=== PATIENT | female | born 1965 | race Caucasian/White ===

== ENCOUNTER → 2017-07-11 | Outpatient (CLI) | payer OTHER ==
--- NOTE | 2017-07-12 07:03 | USB ---
Reason for exam: clinical finding. History: Family history of breast cancer in mother at age 29 and breast cancer in sister. Indicated problem(s): palpable abnormality in the left breast. Physical Findings: Nurse Summary: soft, movable, palpable lump palpated (nurse rm). US Breast Workup LT Left breast ultrasound includes all four quadrants, the retroareolar region and axilla. Finding demonstrates a 0.5 x 0.4 x 0.4cm benign lymph node at 4 o'clock. These results were verbally communicated with the patient and result sheet given to the patient on 07/11/17. ASSESSMENT: Benign, BI-RAD 2 RECOMMENDATION: Return to routine screening mammogram schedule for both breasts. Manage patient on a clinical basis.
== END | disposition home or self-care (01) ==
LOC: RADUSWWP 14:51
PROVIDERS: ATTEND Family Medicine
DX: R92.8 Other abnormal and inconclusive findings on diagnostic imaging of breast (principal)

== ENCOUNTER → 2017-08-28 | Outpatient (CLI) | payer OTHER ==
[2017-08-28 14:10] LABS: Basophils # (A) 0.1 k/uL (0-0.2); Basophils % (A) 1 %; Eosinophils # (A) 0.1 k/uL (0-0.7); Eosinophils % (A) 2 %; HCT 45.5 % (34.0-46.0); HGB 14.1 gm/dL (11.4-16.0); Hypochromasia Slight; Lymphocytes # (A) 3.1 k/uL (1.0-4.8); Lymphocytes % (A) 42 %; MCH 28.9 pg (25.0-35.0); MCHC 31.1 g/dL (31.0-37.0); Mean Platelet Volume 6.4; Monocytes # (A) 0.3 k/uL (0-1.0); Monocytes % (A) 4 %; Neutrophils # (A) 3.5 k/uL (1.3-7.7); Neutrophils % (A) 48 %; Platelet Count 393 k/uL (150-450); RDW 12.4 % (11.5-15.5); WBC 7.3 k/uL (3.8-10.6)
[2017-08-28 14:18] LABS: MCV 92.9 fL (80.0-100.0)
== END | disposition home or self-care (01) ==
LOC: LABPAT 13:15
PROVIDERS: ATTEND Surgery
DX: Z01.812 Encounter for preprocedural laboratory examination (principal); K21.0 Gastro-esophageal reflux disease with esophagitis
CPT/HCPCS: 36415; 85025

== ENCOUNTER 2017-08-31 09:18 | Observation (INO) | payer OTHER ==
[2017-08-23 16:18] VITALS: BMI 26.3
[~2017-08-31 09:18] MED LIST: DEXAMETHASONE SOD PHOSPHATE 10 MG/ML 1 ML VIAL IV ONE; HEPARIN SODIUM,PORCINE 5,000 UNIT/ML 1 ML VIAL SQ ONE; HYDROmorphone 0.5 MG/0.5 ML SYRINGE IVP PRN; MIDAZOLAM 2 MG/2 ML VIAL IV PRN; ONDANSETRON 4 MG/2 ML VIAL IVP ONE; ceFAZolin IN SWFI 2 GM/20 ML SYRINGE IVP ONE
[2017-08-31] MEDS: LACTATED RINGERS 1,000 ML IV SCH (10:09)
[2017-08-31] MEDS ORDERED: LIDOCAINE 1% 20 ML VIAL (10MG/ML) FOR IV START INTRADERMA ONE (10:10)
--- NOTE | 2017-08-31 12:04 | P.GSHP ---
History of Present Illness H&P Date: 08/31/17 Chief Complaint: GERD This a 52-year-old female referred from Dr. Horta. Patient presents today for laparoscopic James fundoplication. The patient has had long-standing problems with reflux esophagitis. The patient underwent recent EGD is found have evidence of esophagitis. Patient has been well informed on the procedure of laparoscopic James fundoplication. The patient is aware the risk of the conversion to the open procedure, risk of injury to the stomach, liver and spleen. The patient is also a risk of recurrent GERD and dysphagia symptoms. The patient understands there is a postoperative diet of full liquids for 2 weeks after surgery. Past Medical History Past Medical History: Fibromyalgia, GERD/Reflux, Osteoarthritis (OA) Additional Past Medical History / Comment(s): hx Kidney stones, migraines, heartburn at night, ruptured discs History of Any Multi-Drug Resistant Organisms: None Reported Past Surgical History: Breast Surgery, Cholecystectomy, Orthopedic Surgery Additional Past Surgical History / Comment(s): D&C x2, Rt foot surgery, benign tumor L breast, tendon repair left ring finger, recent EGD,colonoscopy Past Anesthesia/Blood Transfusion Reactions: Motion Sickness Smoking Status: Former smoker - Past Family History Mother Family Medical History: Cancer Additional Family Medical History / Comment(s): Breast Father Family Medical History: Deep Vein Thrombosis (DVT) Medications and Allergies Home Medications Medication Instructions Recorded Confirmed Type ALPRAZolam [Xanax] 0.25 mg PO BID PRN 08/08/17 08/31/17 History Amitriptyline HCl [Elavil] 50 mg PO HS 08/08/17 08/31/17 History Cyclobenzaprine [Flexeril] 10 mg PO HS PRN 08/08/17 08/31/17 History Famotidine [Pepcid] 20 mg PO BID 08/08/17 08/31/17 History Hydrocodone/Acetaminophen [[place] 1 tab PO TID PRN 08/08/17 08/31/17 History 10-325] Pregabalin [Lyrica] 75 mg PO TID 08/08/17 08/31/17 History Promethazine [Phenergan] 25 mg PO DIRECTED PRN 08/08/17 08/31/17 History Rizatriptan Benzoate [Maxalt] 10 mg PO DIRECTED PRN 08/08/17 08/31/17 History Topiramate [Topamax] 50 mg PO QAM 08/08/17 08/31/17 History Topiramate [Topamax] 100 mg PO HS 08/08/17 08/31/17 History Verapamil [Isoptin] 80 mg PO TID 08/08/17 08/31/17 History Allergies Allergy/AdvReac Type Severity Reaction Status Date / Time latex Allergy Rash/Hives Verified 08/23/17 15:44 rizatriptan [From Maxalt] Allergy Itching Verified 08/23/17 15:44 bandaid Allergy Swelling Uncoded 08/23/17 15:44 Surgical - Exam Vital Signs Temp Pulse Resp BP Pulse Ox 97.6 F 88 16 134/92 99 08/31/17 09:55 08/31/17 09:55 08/31/17 09:55 08/31/17 09:55 08/31/17 09:55 - General well developed, no distress - Eyes PERRL - ENT normal pinna - Neck no masses - Respiratory normal expansion - Cardiovascular Rhythm: regular - Abdomen Abdomen: soft, non tender Assessment and Plan Assessment: ... We'll perform laparoscopic James fundal plication.
[2017-08-31] MEDS ORDERED: MIDAZOLAM 2 MG/2 ML VIAL ONE (12:45)
[2017-08-31] MEDS ORDERED: GLYCOPYRROLATE 0.2 MG/ML 2 ML VIAL ONE (12:45)
[2017-08-31] MEDS ORDERED: NEOSTIGMINE 1 MG/ML 10 ML VIAL ONE (12:45)
[2017-08-31] MEDS ORDERED: fentaNYL (PF) 50 MCG/ML 2 ML AMP ONE (12:45)
[2017-08-31] MEDS ORDERED: SUCCINYLCHOLINE CHLORIDE 100 MG/5 ML SYR IV ONE (12:45)
[2017-08-31] MEDS ORDERED: ROCURONIUM BROMIDE 10 MG/ML 10 ML VIAL IV ONE (12:45)
[2017-08-31] MEDS ORDERED: PROPOFOL 10 MG/ML 20 ML VIAL IV ONE (12:45)
[2017-08-31] MEDS ORDERED: BUPIVACAINE-EPI 0.5%-1:200,000 10 ML VIAL SQ ONE (13:00)
[2017-08-31] MEDS ORDERED: BUPIVACAINE (PF) 0.25% 30 ML VIAL SQ ONE (13:16)
[2017-08-31] MEDS ORDERED: LACTATED RINGERS 1,000 ML IV ONE (13:28)
[2017-08-31] MEDS ORDERED: ONDANSETRON 4 MG/2 ML VIAL IVP PRN (14:23)
--- NOTE | 2017-08-31 14:41 | P.OP ---
Date of Procedure: 08/31/17 Preoperative Diagnosis: GERD Postoperative Diagnosis: GERD Large hiatal hernia Procedure(s) Performed: Laparoscopic James fundal plication with mesh repair of hiatal hernia Anesthesia: LORENZO Surgeon: Kit Menon Estimated Blood Loss (ml): 10 Pathology: none sent Condition: stable Disposition: PACU Description of Procedure: The patient was placed on the operating table in the supine position. She received general anesthesia. She was then placed in dorsal lithotomy position. Her abdomen was prepped and draped in the usual sterile fashion. The skin incision sites were anesthetized with 1% local Xylocaine. The skin was incised in the left periumbilical area with an 11 scalpel. Using a 5 mm blade was trocar under direct visitation the peritoneal cavity was entered. And then insufflated. After adequate insufflation the laparoscope was placed back into the peritoneal cavity. Next a 5 mm trocar was placed in the right epigastric and then the right lateral position. Another 5 mm trochars placed in the left lateral position. Another 5 mm trocar placed in the left epigastric position. And the original left periumbilical trocar was exchanged for a 10 mm trocar. The left lateral lobe liver was retracted. The patient had a large hiatal hernia. Using the Harmonic scissors the crural defect was dissected in the Harmonic scissors were used to dissect the hiatal hernia sac. The fundus of the stomach was completely mobilized by using the Harmonic scissors to divide short gastric vessels. The stomach was reduced into the peritoneal cavity. The crura was dissected with the Harmonic scissors. And then the crural repair was performed using 2-0 Ethibond suture. The [place] bio A mesh was then placed over top of the repair and secured with 2-0 Ethibond suture. Next a 58-Pashto bougie dilator was placed the patient's oral pharynx and into the esophagus into the stomach by the [employer]. The fundoplication was then performed using 2-0 Ethibond suture. A 360 fundoplication was performed. At this point the dilator was withdrawn. The stomach and esophagus were inspected there is known to any injury to the stomach or esophagus. The abdomen was irrigated there is no bleeding seen. The trochars are withdrawn. Skin was closed interrupted 3-0 Monocryl suture. Dermabond was applied. Patient tolerated procedure well and was sent to recovery in stable condition.
[2017-08-31] MEDS ORDERED: HYDROmorphone 1 MG/ML 1 ML SYRINGE IVP ONE ×2 (14:52→14:58)
[2017-08-31 14:56] LABS: Basophils % (A) 0 %; Eosinophils % (A) 0 %; HCT 43.8 % (34.0-46.0); HGB 13.5 gm/dL (11.4-16.0); Hypochromasia Moderate; Lymphocytes # (A) 1.5 k/uL (1.0-4.8); Lymphocytes % (A) 15 %; MCH 28.7 pg (25.0-35.0); MCHC 30.8 g/dL (31.0-37.0); Mean Platelet Volume 6.9; Monocytes # (A) 0.2 k/uL (0-1.0); Monocytes % (A) 2 %; Neutrophils # (A) 8.4 k/uL (1.3-7.7); Neutrophils % (A) 82 %; Platelet Count 267 k/uL (150-450); RBC 4.71 m/uL (3.80-5.40); RDW 13.3 % (11.5-15.5); WBC 10.3 k/uL (3.8-10.6)
[2017-08-31] MEDS ORDERED: HYDROmorphone 2 MG/ML 1 ML SYRINGE IM PRN (15:56)
[2017-08-31] MEDS: ceFAZolin IN SWFI 2 GM/20 ML SYRINGE IVP SCH (17:13)
[2017-08-31] MEDS: D5-0.45% NACL WITH KCL 20MEQ/L 1,000 ML IV SCH (17:13)
[2017-08-31] MEDS: HYDROmorphone 2 MG/ML 1 ML SYRINGE IVP PRN ×2 (17:13→21:43)
[2017-08-31] MEDS: METOCLOPRAMIDE 5 MG/ML 2 ML VIAL IVP SCH (17:13)
[2017-08-31] MEDS ORDERED: SUMAtriptan SUCCINATE 50 MG TAB PO PRN (19:21)
[2017-08-31] MEDS ORDERED: ALPRAZolam 0.25 MG TAB PO PRN (19:21)
[2017-08-31] MEDS ORDERED: CYCLOBENZAPRINE 10 MG TAB PO PRN (19:21)
[2017-08-31] MEDS ORDERED: PROMETHAZINE 25 MG TAB PO PRN (19:21)
[2017-08-31] MEDS: VERAPAMIL 80 MG TAB PO SCH (20:37)
[2017-08-31] MEDS ORDERED: FAMOTIDINE 20 MG/2 ML VIAL IV SCH (21:00)
[2017-08-31] MEDS ORDERED: FAMOTIDINE 20 MG TAB PO SCH (21:00)
[2017-08-31] MEDS: TOPIRAMATE 100 MG TAB PO SCH (21:40)
[2017-08-31] MEDS: AMITRIPTYLINE HCL 25 MG TAB PO SCH (21:41)
[2017-09-01] MEDS: METOCLOPRAMIDE 5 MG/ML 2 ML VIAL IVP SCH ×4 (00:05→18:02)
[2017-09-01] MEDS: ceFAZolin IN SWFI 2 GM/20 ML SYRINGE IVP SCH (00:05)
[2017-09-01] MEDS: D5-0.45% NACL WITH KCL 20MEQ/L 1,000 ML IV SCH ×3 (03:33→21:00)
[2017-09-01] MEDS: HYDROmorphone 2 MG/ML 1 ML SYRINGE IVP PRN ×4 (03:34→21:59)
[2017-09-01] MEDS: PREGABALIN 75 MG CAP PO SCH ×4 (07:12→20:58)
[2017-09-01] MEDS: PANTOPRAZOLE 40 MG/10 ML VIAL IVP SCH ×3 (07:12→20:59)
--- NOTE | 2017-09-01 08:44 | CONS ---
CONSULTATION I am covering for Dr. Horta. REASON FOR CONSULTATION: Advice regarding DJD and multiple other medical issues requested by surgery, Dr. Menon. HISTORY OF PRESENT ILLNESS: This 52-year-old woman with past history of fibromyalgia, DJD, history of migraines, history of heartburn, history of orthopedic surgery, history of anxiety being followed by Dr. Horta in the outpatient setting underwent laparoscopic James fundoplication with mesh repair of hiatal hernia by Dr. Menon. The patient is complaining of some migraine episode at this time, which has been controlled by the different medications adjusted by Dr. Hobson in the outpatient setting. There is no history of fever, rigors. No history of headache. No chest pain, palpitations at this time. PAST MEDICAL HISTORY: History of fibromyalgia, GERD, DJD, history of kidney stones, history of migraine, heartburn. MEDICATIONS: Prior to admission include home medications are: 1. Topamax 100 mg q.h.s. 2. Maxalt 10 mg p.r.n. 3. Phenergan 25 mg p.r.n. 4. Lyrica 75 mg t.i.d. 5. [place] 10 mg t.i.d. p.r.n. 6. Pepcid 20 mg b.i.d. 7. Flexeril 10 mg q.h.s. 8. Elavil 50 mg q.h.s. 9. Xanax 0.5 b.i.d. p.r.n. 10.Isoptin 80 mg p.o. t.i.d. 11.Topamax 50 mg q.a.m. ALLERGIES: LATEX, MAXALT, BAND-AID. FAMILY HISTORY: History of breast cancer. SOCIAL HISTORY: No history of current smoking or alcohol intake. Previous history of smoking. REVIEW OF SYSTEMS: ENT: As mentioned earlier. CARDIOVASCULAR: No angina. RESPIRATORY: No cough or hemoptysis. GI: As mentioned. : No dysuria. NERVOUS SYSTEM: As mentioned. ALLERGY/IMMUNOLOGY: No asthma. MUSCULOSKELETAL: As mentioned earlier. HEMATOLOGY/ONCOLOGY: No history of anemia. ENDOCRINE: No history of diabetes or hypothyroidism. CONSTITUTIONAL: As mentioned earlier. DERMATOLOGY: Negative. RHEUMATOLOGY: Negative. PSYCHIATRY: As mentioned earlier. PHYSICAL EXAMINATION: Alert, oriented x3. Pulse 103, blood pressure 140/80, respirations 16, temperature is normal, pulse ox 90% on room air. HEENT: Conjunctivae normal. Oral mucosa moist. NECK: No jugular venous distention. No carotid bruit. No lymph node enlargement. CARDIOVASCULAR: S1, S2. No S3, no S4. RESPIRATORY: Breath sounds diminished in the bases. No rhonchi, no crackles. ABDOMEN: Soft, status post surgery. LEGS: No edema. No swelling. NERVOUS SYSTEM: Higher functions as mentioned earlier. Moves all four limbs. No focal motor deficits. LYMPHATIC: No lymphadenopathy in the neck, axillae or groin. SKIN: No ulcer, rash, bleeding. LAB: CBC within normal limits. ASSESSMENT: 1. Status post laparoscopic James fundoplication with mesh repair for hiatal hernia. 2. History of migraine. 3. History of gastroesophageal reflux disease. 4. History of fibromyalgia. 5. History of degenerative joint disease. 6. History of kidney stones. 7. History of cholecystectomy. 8. History of anxiety. 9. Remote history of nicotine dependence. RECOMMENDATIONS AND DISCUSSION: This 52-year-old woman who presented with multiple complex medical issues, will monitor the patient closely. Continue the current management and symptomatic treatment. Home medications reviewed. I recommend resume home medications especially night doses and use p.r.n. medications. Dilaudid also may be used for pain control. Otherwise, DVT prophylaxis. Incentive spirometry. Proton pump inhibitors. We will follow the patient closely with you. The patient may be asked to follow up with Dr. Horta closely after discharge. Thank you Dr. Menon, for letting us participate in the care of this patient. MMODL / IJN: [id number] /
[2017-09-01] MEDS: LACTATED RINGERS 1,000 ML IV SCH (08:47)
[2017-09-01] MEDS: TOPIRAMATE 25 MG TAB PO SCH (08:54)
[2017-09-01] MEDS: ENOXAPARIN 40 MG/0.4 ML SYRINGE SQ SCH (08:54)
[2017-09-01] MEDS: VERAPAMIL 80 MG TAB PO SCH ×3 (08:54→20:58)
--- NOTE | 2017-09-01 09:43 | FL ---
EXAMINATION TYPE: FL esophagus cervic/pharynx , DATE OF EXAM ORDERED: 09/01/2017 HISTORY: Postop Juani fundoplication. COMPARISON: None. FINDINGS: The patient swallowed contrast with ease. There is prompt egress of contrast from the esop hagus into the stomach. There is no evidence of extravasation or significant free air. The ligament o f Treitz is in the normal location. IMPRESSION: STATUS POST JUANI FUNDOPLICATION. FLUOROSCOPY TIME: 60 SECONDS
--- NOTE | 2017-09-01 10:43 | P.PN ---
Progress Note - Text Progress Note Date: 09/01/17 The patient has complaints of some nausea. She had her esophagram which showed some mild obstruction at the operative site due to edema. On exam her vital signs are stable. Her abdomen soft. Her incision sites are clean dry tach. Patiently discharged home tomorrow. She will start on clear liquids today.
--- NOTE | 2017-09-01 20:26 | PN ---
PROGRESS NOTE DATE OF SERVICE: 09/01/2017 I am covering for Dr. Horta. This 52-year-old woman who was admitted after laparoscopic James fundoplication complains of nausea as well as pain. No chest pain. No palpitations. No fever. Dr. Menon is following the patient closely. EXAM: Alert and oriented x3. Pulse 87, blood pressure 143/90, respirations 20, temperature 97.9, pulse ox 98% on room air. HEENT: Conjunctivae normal. NECK: No jugular venous distention. CARDIOVASCULAR: S1, S2 muffled. RESPIRATORY: Breath sounds diminished in the bases. No rhonchi. No crackles. ABDOMEN: Soft, status post surgery. NERVOUS SYSTEM: No focal deficits LABS: Noted. ASSESSMENT: 1. Status post laparoscopic James fundoplication with a mesh repair of hiatal hernia. 2. History of migraines. 3. History of gastroesophageal reflux disease. 4. History of fibromyalgia. 5. History of degenerative joint disease. 6. History of kidney stones. 7. History of cholecystectomy. 8. History of anxiety. 9. Remote history of nicotine dependence. RECOMMENDATIONS AND DISCUSSION: Recommend to continue current medical management. Continue with monitoring and symptomatic treatment. Otherwise, at this time I would recommend continuing with the with proton pump inhibitors. Closely monitor. Further recommendations to follow. MMODL / IJN: [id number] /
[2017-09-01] MEDS: AMITRIPTYLINE HCL 25 MG TAB PO SCH (20:57)
[2017-09-01] MEDS: TOPIRAMATE 100 MG TAB PO SCH (20:58)
[2017-09-02] MEDS: METOCLOPRAMIDE 5 MG/ML 2 ML VIAL IVP SCH ×2 (00:02→05:02)
[2017-09-02] MEDS: HYDROmorphone 2 MG/ML 1 ML SYRINGE IVP PRN ×2 (05:02→10:43)
[2017-09-02 06:24] VITALS: RESP 18
[2017-09-02] MEDS: D5-0.45% NACL WITH KCL 20MEQ/L 1,000 ML IV SCH (08:05)
[2017-09-02] MEDS: LACTATED RINGERS 1,000 ML IV SCH (08:05)
[2017-09-02 08:30] VITALS: BP 114/72; PULSE 112; TEMP 99.6
[2017-09-02] MEDS: TOPIRAMATE 25 MG TAB PO SCH (08:57)
[2017-09-02] MEDS: ENOXAPARIN 40 MG/0.4 ML SYRINGE SQ SCH (08:57)
[2017-09-02] MEDS: PREGABALIN 75 MG CAP PO SCH (08:57)
[2017-09-02] MEDS: VERAPAMIL 80 MG TAB PO SCH (08:58)
[2017-09-02] MEDS: PANTOPRAZOLE 40 MG/10 ML VIAL IVP SCH (08:58)
--- NOTE | 2017-09-02 11:00 | P.DS ---
Providers Date of admission: 09/01/17 05:25 Expected date of discharge: 09/02/17 Attending physician: Kit Menon Consults: 08/31/17 14:23 Consult Physician Routine Consulting Provider: Jordon Horta Consult Reason/Comments: medical management Do you want consulting provider notified?: Yes Primary care physician: Jordon Horta [facility] Course: This is a 52-year-old female who underwent laparoscopic James fundal plication and mesh repair of hiatal hernia on 08/31/2017. Patient did well postoperatively. Postoperative day 1 she had some nausea due to edema of her hiatal hernia repair. On postop day 2 patient was tolerating diet without difficulty. She had no significant abdominal pain. Procedures: Terell B James fundal plication Patient Condition at Discharge: Good Plan - Discharge Summary Discharge Rx Participant: No New Discharge Prescriptions: Continue Famotidine [Pepcid] 20 mg PO BID Cyclobenzaprine [Flexeril] 10 mg PO HS PRN PRN Reason: Pain ALPRAZolam [Xanax] 0.25 mg PO BID PRN PRN Reason: Anxiety Rizatriptan Benzoate [Maxalt] 10 mg PO DIRECTED PRN PRN Reason: migraines Promethazine [Phenergan] 25 mg PO DIRECTED PRN PRN Reason: migraines Hydrocodone/Acetaminophen [[place] 10-325] 1 tab PO TID PRN PRN Reason: Pain Amitriptyline HCl [Elavil] 50 mg PO HS Topiramate [Topamax] 100 mg PO HS Topiramate [Topamax] 50 mg PO QAM Verapamil [Isoptin] 80 mg PO TID Pregabalin [Lyrica] 75 mg PO TID Discharge Medication List ALPRAZolam [Xanax] 0.25 mg PO BID PRN 08/08/17 [History] Amitriptyline HCl [Elavil] 50 mg PO HS 08/08/17 [History] Cyclobenzaprine [Flexeril] 10 mg PO HS PRN 08/08/17 [History] Famotidine [Pepcid] 20 mg PO BID 08/08/17 [History] Hydrocodone/Acetaminophen [[place] 10-325] 1 tab PO TID PRN 08/08/17 [History] Pregabalin [Lyrica] 75 mg PO TID 08/08/17 [History] Promethazine [Phenergan] 25 mg PO DIRECTED PRN 08/08/17 [History] Rizatriptan Benzoate [Maxalt] 10 mg PO DIRECTED PRN 08/08/17 [History] Topiramate [Topamax] 50 mg PO QAM 08/08/17 [History] Topiramate [Topamax] 100 mg PO HS 08/08/17 [History] Verapamil [Isoptin] 80 mg PO TID 08/08/17 [History] Follow up Appointment(s)/Referral(s): Jordon Horta MD [Primary Care Provider] - 3 Days Kit Menon MD [STAFF PHYSICIAN] - As Needed
--- NOTE | 2017-09-03 10:49 | PN ---
PROGRESS NOTE DATE OF SERVICE: 09/02/2017. HISTORY OF PRESENT ILLNESS: I am covering for Dr. Horta. This 52-year-old woman was admitted after laparoscopic James fundoplication. She has improved significantly. No chest pain. No palpitations. No fever. No shortness of breath. EXAM: Alert, oriented x3. Pulse is 95, blood pressure 130/80, potassium 18, temperature 97.2, pulse ox 99% on room air. CARDIOVASCULAR: S1 and S2 muffled. LUNGS: Breath sounds diminished. No rhonchi, no crackles. ABDOMEN: Soft, status post surgery. LEGS: No edema. No swelling. LAB STUDIES: WBC 11.1, hemoglobin 13.5. ASSESSMENT: 1. Status post laparoscopic James fundoplication with mesh repair of hiatal hernia. 2. History of migraines. 3. History of gastroesophageal reflux disease. 4. History of fibromyalgia. 5. History of degenerative joint disease. 6. History of kidney stones. 7. History of cholecystectomy. 8. History of anxiety. 9. Remote history of nicotine dependence. RECOMMENDATIONS AND DISCUSSION: Continue current management and symptomatic treatment. Otherwise at this time the patient is clinically asymptomatic. Heart rate is normal. Recommend close follow up with Dr. Horta in the outpatient setting further as well as Surgery. Further recommendations to follow. MMODL / IJN: [id number] /
== END 2017-09-02 11:54 | disposition home or self-care (01) ==
LOC: OR 09:18 → 6PED 14:04 → OR 09-01 05:25 → 6PED 09-01 05:25
PROVIDERS: ADMIT Surgery; ATTEND Surgery
DX: K21.0 Gastro-esophageal reflux disease with esophagitis (principal); K44.9 Diaphragmatic hernia without obstruction or gangrene; M79.7 Fibromyalgia; M19.90 Unspecified osteoarthritis, unspecified site; R11.0 Nausea; R60.9 Edema, unspecified; G89.18 Other acute postprocedural pain; F41.9 Anxiety disorder, unspecified; G43.909 Migraine, unspecified, not intractable, without status migrainosus; Z87.891 Personal history of nicotine dependence; Z90.49 Acquired absence of other specified parts of digestive tract; Z80.3 Family history of malignant neoplasm of breast; Z79.899 Other long term (current) drug therapy; Z91.040 Latex allergy status; Z88.8 Allergy status to other drugs, medicaments and biological substances; Z91.048 Other nonmedicinal substance allergy status; Z87.442 Personal history of urinary calculi
CPT/HCPCS: 74210; 85025

== ENCOUNTER 2019-03-18 08:04 | Day surgery (SDC) | payer OTHER ==
[2019-03-13 11:07] VITALS: BMI 23.8
[~2019-03-18 08:04] MED LIST changes: -DEXAMETHASONE SOD PHOSPHATE 10 MG/ML 1 ML VIAL IV ONE; -HEPARIN SODIUM,PORCINE 5,000 UNIT/ML 1 ML VIAL SQ ONE; -HYDROmorphone 0.5 MG/0.5 ML SYRINGE IVP PRN; +LACTATED RINGERS 1,000 ML IV SCH; -MIDAZOLAM 2 MG/2 ML VIAL IV PRN; -ONDANSETRON 4 MG/2 ML VIAL IVP ONE; -ceFAZolin IN SWFI 2 GM/20 ML SYRINGE IVP ONE
[2019-03-18] MEDS ORDERED: LIDOCAINE 1% 20 ML VIAL (10MG/ML) FOR IV START INTRADERMA ONE (08:40)
[2019-03-18 08:42] VITALS: RESP 16; TEMP 98
[2019-03-18] MEDS ORDERED: LIDOCAINE 1% INJ 10MG/ML (20 ML MDV) ONE (09:01)
[2019-03-18] MEDS ORDERED: PROPOFOL 10 MG/ML 20 ML VIAL IV ONE (09:01)
--- NOTE | 2019-03-18 09:03 | P.GSHP ---
History of Present Illness H&P Date: 03/18/19 Chief Complaint: History of diverticulitis This is a 53-year-old female who presents today for colonoscopy. Patient history of diverticulitis with perforation. She is scheduled for low anterior resection tomorrow. Past Medical History Past Medical History: Fibromyalgia, GERD/Reflux, Osteoarthritis (OA) Additional Past Medical History / Comment(s): hx Kidney stones, migraines, heartburn at night, ruptured discs with difficulty laying in bed long periods will need to roll to side to get out of bed, diverticulitis, lesion on liver History of Any Multi-Drug Resistant Organisms: None Reported Past Surgical History: Breast Surgery, Cholecystectomy, Orthopedic Surgery Additional Past Surgical History / Comment(s): D&C x2, Rt foot surgery, benign tumor L breast, tendon repair left ring finger, EGD,colonoscopy, hiatal hernia repair Past Anesthesia/Blood Transfusion Reactions: Previous Problems w/ Anesthesia, Motion Sickness, Postoperative Nausea & Vomiting (PONV) Smoking Status: Former smoker - Past Family History Mother Family Medical History: Cancer Additional Family Medical History / Comment(s): Breast age 33 Father Family Medical History: Deep Vein Thrombosis (DVT) Medications and Allergies Home Medications Medication Instructions Recorded Confirmed Type ALPRAZolam [Xanax] 0.25 mg PO BID PRN 08/08/17 03/18/19 History Amitriptyline HCl [Elavil] 50 mg PO HS 08/08/17 03/18/19 History Hydrocodone/Acetaminophen [[place] 1 tab PO TID PRN 08/08/17 03/18/19 History 10-325] Pregabalin [Lyrica] 75 mg PO TID 08/08/17 03/18/19 History Promethazine [Phenergan] 25 mg PO DIRECTED PRN 08/08/17 03/18/19 History Rizatriptan Benzoate [Maxalt] 10 mg PO DIRECTED PRN 08/08/17 03/18/19 History Topiramate [Topamax] 50 mg PO QAM 08/08/17 03/18/19 History Topiramate [Topamax] 100 mg PO HS 08/08/17 03/18/19 History Verapamil [Isoptin] 80 mg PO TID 08/08/17 03/18/19 History Docusate [Colace] 100 mg PO BID PRN 03/13/19 03/18/19 History Inulin/Chromium Picolinate [Fiber 1 each PO DAILY 03/13/19 03/18/19 History Gummies Chew] Montelukast [Singulair] 10 mg PO HS 03/13/19 03/18/19 History Allergies Allergy/AdvReac Type Severity Reaction Status Date / Time latex Allergy Rash/Hives Verified 03/18/19 08:19 rizatriptan [From Maxal] Allergy Itching Verified 03/18/19 08:19 bandaid Allergy Swelling Uncoded 03/18/19 08:19 Surgical - Exam Vital Signs Temp Pulse Resp BP Pulse Ox 98.0 F 88 16 137/76 100 03/18/19 08:40 03/18/19 08:40 03/18/19 08:40 03/18/19 08:40 03/18/19 08:40 - General well developed, well nourished, no distress - Eyes PERRL - ENT normal pinna - Neck no masses - Respiratory normal expansion - Cardiovascular Rhythm: regular - Abdomen Abdomen: soft, non tender Assessment and Plan Assessment: History of diverticulitis. We'll perform colonoscopy.
--- NOTE | 2019-03-18 09:20 | P.OP ---
Date of Procedure: 03/18/19 Preoperative Diagnosis: Diverticulitis Postoperative Diagnosis: Diverticulitis Procedure(s) Performed: Colonoscopy Anesthesia: MAC Surgeon: Kit Menon Pathology: none sent Condition: stable Disposition: PACU Description of Procedure: The patient's placed on the endoscopy table lateral position. She received IV sedation. Digital rectal exam was performed which revealed no rebound.. Scope was then placed patient anus passed through the colon. In the sigmoid colon there is extensive diverticular changes and evidence of chronic scarring. The scope could not be passed beyond the sigmoid colon. This point scope was withdrawn there is extensive diverticulosis of the sigmoid colon. The rectum appeared normal. Scope was withdrawn for patient.
[2019-03-18 09:46] VITALS: BP 119/80; PULSE 72
== END 2019-03-18 10:09 | disposition home or self-care (01) ==
LOC: ORWHC2ENDO 08:04
PROVIDERS: ATTEND Surgery
DX: K57.30 Diverticulosis of large intestine without perforation or abscess without bleeding (principal); K21.9 Gastro-esophageal reflux disease without esophagitis; M19.90 Unspecified osteoarthritis, unspecified site; M79.7 Fibromyalgia; Z87.442 Personal history of urinary calculi; Z87.891 Personal history of nicotine dependence; Z90.49 Acquired absence of other specified parts of digestive tract; Z79.891 Long term (current) use of opiate analgesic; Z79.899 Other long term (current) drug therapy; Z79.51 Long term (current) use of inhaled steroids; Z88.8 Allergy status to other drugs, medicaments and biological substances; Z91.040 Latex allergy status; I10 Essential (primary) hypertension
CPT/HCPCS: 45378; J2001; J2704

== ENCOUNTER 2019-03-19 07:45 | Inpatient (IN) | payer OTHER ==
[~2019-03-19 07:45] MED LIST changes: +DEXAMETHASONE SOD PHOSPHATE 10 MG/ML 1 ML VIAL IV ONE; +HYDROmorphone 0.5 MG/0.5 ML SYRINGE IVP PRN; -LACTATED RINGERS 1,000 ML IV SCH; +LIDOCAINE 1% 20 ML VIAL (10MG/ML) FOR IV START INTRADERMA PRN; +MIDAZOLAM 2 MG/2 ML VIAL IV PRN; +ONDANSETRON 4 MG/2 ML VIAL IVP ONE; +fentaNYL (PF) 50 MCG/ML 2 ML AMP IV PRN; +metroNIDAZOLE-NS PMX 500 MG in SALINE 1 100ML.BAG IVPB ONE
[2019-03-19] MEDS: LACTATED RINGERS 1,000 ML IV SCH (13:28)
--- NOTE | 2019-03-19 13:38 | P.GSHP ---
History of Present Illness H&P Date: 03/19/19 Chief Complaint: Diverticulitis This a 51-year-old female who presents today for low anterior resection. Patient's previous history of perforated diverticulitis. Patient's aware the risks of surgery including possible colostomy, anastomotic leak, bleeding. Past Medical History Past Medical History: Fibromyalgia, GERD/Reflux, Osteoarthritis (OA) Additional Past Medical History / Comment(s): hx Kidney stones, migraines, heartburn at night, ruptured discs with difficulty laying in bed long periods will need to roll to side to get out of bed, diverticulitis, lesion on liver History of Any Multi-Drug Resistant Organisms: None Reported Past Surgical History: Breast Surgery, Cholecystectomy, Orthopedic Surgery Additional Past Surgical History / Comment(s): D&C x2, Rt foot surgery, benign tumor L breast, tendon repair left ring finger, EGD,colonoscopy, hiatal hernia repair Past Anesthesia/Blood Transfusion Reactions: Previous Problems w/ Anesthesia, Motion Sickness, Postoperative Nausea & Vomiting (PONV) Smoking Status: Former smoker - Past Family History Mother Family Medical History: Cancer Additional Family Medical History / Comment(s): Breast age 33 Father Family Medical History: Deep Vein Thrombosis (DVT) Medications and Allergies Home Medications Medication Instructions Recorded Confirmed Type ALPRAZolam [Xanax] 0.25 mg PO BID PRN 08/08/17 03/19/19 History Amitriptyline HCl [Elavil] 50 mg PO HS 08/08/17 03/19/19 History Hydrocodone/Acetaminophen [[place] 1 tab PO TID PRN 08/08/17 03/19/19 History 10-325] Pregabalin [Lyrica] 75 mg PO TID 08/08/17 03/19/19 History Promethazine [Phenergan] 25 mg PO DIRECTED PRN 08/08/17 03/19/19 History Rizatriptan Benzoate [Maxalt] 10 mg PO DIRECTED PRN 08/08/17 03/19/19 History Topiramate [Topamax] 50 mg PO QAM 08/08/17 03/19/19 History Topiramate [Topamax] 100 mg PO HS 08/08/17 03/19/19 History Verapamil [Isoptin] 80 mg PO TID 08/08/17 03/19/19 History Docusate [Colace] 100 mg PO BID PRN 03/13/19 03/19/19 History Inulin/Chromium Picolinate [Fiber 1 each PO DAILY 03/13/19 03/19/19 History Gummies Chew] Montelukast [Singulair] 10 mg PO HS 03/13/19 03/19/19 History Allergies Allergy/AdvReac Type Severity Reaction Status Date / Time latex Allergy Rash/Hives Verified 03/18/19 08:19 rizatriptan [From Maxalt] Allergy Itching Verified 03/18/19 08:19 bandaid Allergy Swelling Uncoded 03/18/19 08:19 Surgical - Exam Vital Signs Temp Pulse Resp BP Pulse Ox 97.4 F L 90 16 136/63 99 03/19/19 13:17 03/19/19 13:17 03/19/19 13:17 03/19/19 13:17 03/19/19 13:17 - General well developed, well nourished, no distress - Eyes PERRL - ENT normal pinna - Neck no masses - Respiratory normal expansion - Cardiovascular Rhythm: regular - Abdomen Abdomen: soft, non tender Assessment and Plan Assessment: History of perforated diverticula is. We'll perform a low anterior resection.
[2019-03-19] MEDS ORDERED: NALOXONE 0.4 MG/ML 1 ML VIAL IV PRN (14:20)
[2019-03-19] MEDS ORDERED: diphenhydrAMINE 50 MG/ML 1 ML VIAL IVP PRN (14:20)
[2019-03-19] MEDS ORDERED: PROPOFOL 10 MG/ML 20 ML VIAL IV ONE (14:39)
[2019-03-19] MEDS ORDERED: PHENYLEPHRINE-0.9% NACL SYG 1 MG/10 ML SYRINGE ONE (14:39)
[2019-03-19] MEDS ORDERED: LIDOCAINE 1% INJ 10MG/ML (20 ML MDV) ONE (14:39)
[2019-03-19] MEDS ORDERED: fentaNYL (PF) 50 MCG/ML 2 ML AMP ONE (14:39)
[2019-03-19] MEDS ORDERED: NEOSTIGMINE 1 MG/ML 10 ML VIAL ONE (14:39)
[2019-03-19] MEDS ORDERED: ROCURONIUM BROMIDE 10 MG/ML 10 ML VIAL IV ONE (14:39)
[2019-03-19] MEDS ORDERED: GLYCOPYRROLATE 0.2 MG/ML 2 ML VIAL ONE (14:39)
[2019-03-19] MEDS ORDERED: MIDAZOLAM 2 MG/2 ML VIAL ONE (14:39)
[2019-03-19] MEDS: HEPARIN SODIUM,PORCINE 5,000 UNIT/ML 1 ML VIAL SQ ONE ×2 (14:42→16:54)
[2019-03-19] MEDS ORDERED: LACTATED RINGERS 1,000 ML IV ONE (15:19)
[2019-03-19] MEDS ORDERED: ONDANSETRON 4 MG/2 ML VIAL IVP PRN (15:59)
--- NOTE | 2019-03-19 15:59 | P.OP ---
Date of Procedure: 03/19/19 Preoperative Diagnosis: History of perforated diverticulitis Postoperative Diagnosis: History of perforated diverticulitis Procedure(s) Performed: Low anterior resection Anesthesia: MATHEWA Surgeon: Kit Menon Estimated Blood Loss (ml): 20 Pathology: other (Sigmoid colon) Condition: stable Disposition: PACU Description of Procedure: DESCRIPTION OF PROCEDURE: The patient was placed on the operating table in the supine position. Patient received a general anesthesia. Patient was then placed in the dorsal lithotomy position. The patients abdomen was prepped and draped in the usual sterile fashion. Through a low midline incision, the abdomen was entered. The Zachary wound protector was used. The Bookwalter retractor was placed in the wound. The stomach appeared normal. The small bowel appeared normal. The liver appeared normal. The right colon and transverse colon appeared normal. The sigmoid colon was examined. There appeared to be evidence of previous diverticulitis in the mid sigmoid colon. He white line of Toldt was transected. The left colon was rotated medially. At this point an enterotomy is made in the sigmoid colon and the anvil for the EEA stapler was placed into the colon. The 29 mm EEA was used. The descending colon was then transected with a GI stapler. The spike for the handle was driven through the staple line. At this point the mesentery of the sigmoid colon was divided using the Enseal device. The rectum was then transected with the contour stapler. Next the promotions assistant sales marketing placed the EEA stapler patient's anus the spike was driven through the rectal staple line and then the anvil was connected to the stapler. The stapler is then closed and fired. 2 intact tissue rings were retrieved. Next a high Was placed on the colon and then using a rigid sigmoidoscope the colon was insufflated with air. There is no evidence of any extravasation of air. Thyroid was withdrawn. The abdomen was irrigated with saline. The fascia was closed with clean instruments. Using 0 PDS suture the fascia was closed and skin was closed eris. A Prevena wound system was placed on the incision. Patient top procedure well was sent to recovery in stable condition.
[2019-03-19] MEDS ORDERED: ONDANSETRON 4 MG/2 ML VIAL IVP ONE (16:26)
[2019-03-19] MEDS ORDERED: diphenhydrAMINE 50 MG/ML 1 ML VIAL IVP ONE (16:44)
[2019-03-19] MEDS: ROPIVACAINE 400 MG, HYDROMORPHONE (PF) 5 MG in SODIUM CHLORIDE 0.9% 170 ML EPIDURAL PRN (16:53)
[2019-03-19] MEDS: fentaNYL (PF) 50 MCG/ML 2 ML AMP IV ONE ×2 (17:19→17:29)
[2019-03-19 18:18] VITALS: BMI 23.4
[2019-03-19 18:40] LABS: Basophils % (A) 0 %; Eosinophils % (A) 0 %; HCT 42.1 % (34.0-46.0); HGB 13.2 gm/dL (11.4-16.0); Lymphocytes # (A) 1.1 k/uL (1.0-4.8); Lymphocytes % (A) 7 %; MCH 29.9 pg (25.0-35.0); MCHC 31.4 g/dL (31.0-37.0); MCV 95.1 fL (80.0-100.0); Mean Platelet Volume 6.9; Monocytes # (A) 0.3 k/uL (0-1.0); Monocytes % (A) 2 %; Neutrophils # (A) 13.5 k/uL (1.3-7.7); Neutrophils % (A) 90 %; Platelet Count 281 k/uL (150-450); RBC 4.42 m/uL (3.80-5.40); RDW 14.1 % (11.5-15.5)
[2019-03-19] MEDS ORDERED: ALPRAZolam 0.25 MG TAB PO PRN (18:45)
[2019-03-19] MEDS ORDERED: PROMETHAZINE 25 MG TAB PO PRN (18:45)
[2019-03-19] MEDS ORDERED: DOCUSATE 100 MG CAP PO PRN (18:45)
[2019-03-19] MEDS ORDERED: SUMAtriptan SUCCINATE 50 MG TAB PO PRN (18:45)
[2019-03-19] MEDS ORDERED: HYDROcodone/APAP 10-325MG 1 EACH TAB PO PRN (18:46)
[2019-03-19 19:26] LABS: African American GFR (CKD) >90 (>60 ml/min/1.73 sqM); Anion Gap 10 mmol/L; Blood Urea Nitrogen 10 mg/dL (7-17); Calcium 8.8 mg/dL (8.4-10.2); Carbon Dioxide 23 mmol/L (22-30); Chloride 109 mmol/L (98-107); Glucose 139 mg/dL (74-99); Potassium 3.4 mmol/L (3.5-5.1); Sodium 142 mmol/L (137-145)
[2019-03-19] MEDS: TOPIRAMATE 100 MG TAB PO SCH (21:24)
[2019-03-19] MEDS: VERAPAMIL 80 MG TAB PO SCH (21:24)
[2019-03-19] MEDS: ALVIMOPAN 12 MG CAPSULE PO SCH (21:24)
[2019-03-19] MEDS: MONTELUKAST 10 MG TAB PO SCH (21:25)
[2019-03-19] MEDS: AMITRIPTYLINE HCL 50 MG TAB PO SCH (21:25)
[2019-03-19] MEDS: PREGABALIN 75 MG CAP PO SCH (21:27)
[2019-03-19] MEDS: D5-0.45% NACL WITH KCL 20MEQ/L 1,000 ML IV SCH (22:14)
[2019-03-20] MEDS: LACTATED RINGERS 1,000 ML IV SCH ×2 (01:53→23:48)
[2019-03-20] MEDS: D5-0.45% NACL WITH KCL 20MEQ/L 1,000 ML IV SCH ×4 (02:49→22:33)
--- NOTE | 2019-03-20 08:20 | P.PN ---
Progress Note - Text Date: 03/20/2019 Time: 03 22 The patient is status post, LAR, postoperative day number 1 The patient has no complaints of nausea vomiting or headache. The patient does not complain of any lower extremity numbness or weakness. The epidural is running at 8 mL per hour. The epidural will be maintained and adjusted as needed.
[2019-03-20] MEDS: TOPIRAMATE 25 MG TAB PO SCH (09:57)
[2019-03-20] MEDS: ALVIMOPAN 12 MG CAPSULE PO SCH ×2 (09:57→20:55)
[2019-03-20] MEDS: VERAPAMIL 80 MG TAB PO SCH ×3 (09:57→20:56)
[2019-03-20] MEDS: PREGABALIN 75 MG CAP PO SCH ×2 (09:58→22:32)
--- NOTE | 2019-03-20 14:03 | P.PN ---
Subjective Progress Note Date: 03/20/19 CHIEF COMPLAINT: history of perforated diverticulitis HISTORY OF PRESENT ILLNESS: 53-year-old female who underwent low anterior resection. Postop day #1. Patient seen and examined oriented bedside. Patient reports her pain is tolerable. Epidurals currently infusing. She is tolerating clear liquid diet. Denies nausea or vomiting. Patient reports having bowel movement 2 this morning. Using incentive spirometry. PHYSICAL EXAM: VITAL SIGNS: Reviewed. GENERAL: Well-developed in no acute distress. HEENT: No sclera icterus. Extraocular movements grossly intact. Moist buccal mucosa. Head is atraumatic, normocephalic. ABDOMEN: Soft. Nondistended. minimal tenderness. PREVENA wound management system noted. NEUROLOGIC: Alert and oriented. Cranial nerves II through XII grossly intact. ASSESSMENT: 1. History of perforated diverticulitis, status post low anterior resection PLAN: 1. Dr. Menon would like patient to remain on clear liquid diet for today. Possible advancement of full liquid diet tomorrow 2. Pain control. Continue epidural. Remove postop day #3. Patient will resume home dose of [place] 10 after epidural discontinued 3. Continue Roger catheter while epidural in place 4. Incentive spirometry 5. Activity as tolerated Nurse practitioner note has been reviewed by physician. Signing provider agrees with the documented findings, assessment, and plan of care. Objective - Vital Signs Vital signs: Vital Signs Temp 97.6 F 03/20/19 07:00 Pulse 80 03/20/19 08:15 Resp 14 03/20/19 08:15 BP 100/65 03/20/19 07:00 Pulse Ox 99 03/20/19 07:00 Intake & Output 03/19/19 03/20/19 03/20/19 18:59 06:59 18:59 Intake Total 2275 240 Output Total 170 2380 Balance 2105 -2140 Intake: IV 2275 Oral 240 Output: Urine 140 2050 Stool 330 Estimated Blood Loss 30 Other: Voiding Method Indwelling Catheter Indwelling Catheter Indwelling Catheter # Voids 1 # Bowel Movements 1 - Labs CBC & Chem 7: 03/19/19 18:13 03/19/19 18:13 Labs: Abnormal Lab Results - Last 24 Hours (Table) 03/19/19 03/19/19 Range/Units 18:13 18:13 WBC 15.0 H (3.8-10.6) k/uL Neutrophils # 13.5 H (1.3-7.7) k/uL Potassium 3.4 L (3.5-5.1) mmol/L Chloride 109 H (98-107) mmol/L Glucose 139 H (74-99) mg/dL
[2019-03-20] MEDS: ROPIVACAINE 400 MG, HYDROMORPHONE (PF) 5 MG in SODIUM CHLORIDE 0.9% 170 ML EPIDURAL PRN (20:48)
[2019-03-20] MEDS: AMITRIPTYLINE HCL 50 MG TAB PO SCH (20:55)
[2019-03-20] MEDS: TOPIRAMATE 100 MG TAB PO SCH (20:56)
[2019-03-20] MEDS: MONTELUKAST 10 MG TAB PO SCH (20:56)
--- NOTE | 2019-03-20 22:26 | CONS ---
CONSULTATION DATE OF SERVICE: 03/20/2019 REASON FOR CONSULTATION: Advice regarding fibromyalgia, DJD and multiple other medical issues requested by Dr. Menon. HISTORY OF PRESENT ILLNESS: This 53-year-old woman with a past medical history of multiple medical problems including fibromyalgia, GERD, DJD, history of nephrolithiasis, breast surgery, cholecystectomy, anxiety, being followed by Dr. Horta in the outpatient setting underwent low anterior resection for history of perforated diverticulitis by Dr. Menon. The patient tolerated the procedure well. The patient being closely monitored. There is no history of fever, rigors or chills. No history of headache, loss of consciousness or seizures at this time. PAST MEDICAL HISTORY: Past medical history of fibromyalgia, GERD, history of kidney stones, breast surgery, cholecystectomy, anxiety. MEDICATIONS: Home medications are: 1. Isoptin 80 mg p.o. t.i.d. 2. Topamax 50 mg q.a.m. and 100 mg q.h.s. 3. Maxalt 10 mg p.r.n. 4. Phenergan 25 mg p.r.n. 5. Lyrica 75 mg p.o. t.i.d. 6. Singulair 10 mg q.h.s. 8. King 10 mg t.i.d. p.r.n. 9. Colace 100 mg b.i.d. p.r.n. 10.Elavil 50 mg p.o. q.h.s. 11.Xanax 0.5 b.i.d. p.r.n. ALLERGIES: LATEX, MAXALT, AND BAND-AID. FAMILY HISTORY: History of cancer, breast cancer. SOCIAL HISTORY: Previous history of smoking. No history of current smoking. No history of alcohol intake. REVIEW OF SYSTEMS: ENT: No diminished hearing. No diminished vision. CARDIOVASCULAR: No angina or palpitations. RESPIRATIONS: As mentioned earlier. GASTROINTESTINAL: As mentioned earlier. GENITOURINARY: No dysuria. CENTRAL NERVOUS SYSTEM: No numbness or weakness. ALLERGY/IMMUNOLOGY: As mentioned earlier. HEMATOLOGY/ONCOLOGY: No history of anemia. ENDOCRINE: No history of diabetes or hypothyroidism. CONSTITUTIONAL: As mentioned earlier. DERMATOLOGY: Negative. RHEUMATOLOGY negative. PSYCHIATRY as mentioned earlier. PHYSICAL EXAMINATION: The patient is alert and oriented times three. Pulse is 80, blood pressure is 100/64. Respirations 12. Temperature 97.6, pulse ox 99% on room air. HEENT is conjunctivae normal. NECK: No jugular venous distention. No carotid bruit. No lymph node enlargement. Cardiovascular system: S1, S2 muffled. No S3, no S4. RESPIRATORY: Breath sounds diminished in the bases. A few scattered rhonchi. No crackles. ABDOMEN: Soft, status post surgery. No mass palpable. LEGS: No edema. No swelling. NERVOUS SYSTEM: Higher functions as mentioned earlier. Moves all 4 limbs. No focal motor or sensory deficits. Lymphatics: No lymph nodes palpable in the neck, axillae or groin. JOINTS: No active deforming arthropathies. LABS: WBC 15, hemoglobin 13.2, sodium 142, potassium 3.4. ASSESSMENT: 1. Status post low anterior sigmoid resection for history of perforated diverticulitis. 2. Increased WBC. 3. Hypokalemia. 4. Fibromyalgia. 5. Gastroesophageal reflux disease. 6. Degenerative joint disease. 7. History of nephrolithiasis. 8. History of migraine. 9. History of cholecystectomy. 10.History of James fundoplication. 11.History of anxiety. 12.Remote history of nicotine dependence. RECOMMENDATIONS AND DISCUSSION: In this 53-year-old woman who presented with multiple complex medical issues, at this time, I recommend continue with the current medications. Continue symptomatic treatment. Otherwise, at this time, I would recommend continue with current medications. Supplement potassium. Repeat labs. DVT prophylaxis. Incentive spirometry. We will follow the patient closely with you and resume the home medications and the patient may be asked to follow up with Dr. Lora closely after discharge. Thank you Dr. Menon for letting us participate in the care of this patient. MMODL / IJN: [id number] / [email or web address]
[2019-03-21] MEDS: D5-0.45% NACL WITH KCL 20MEQ/L 1,000 ML IV SCH ×2 (06:16→14:24)
--- NOTE | 2019-03-21 07:27 | P.PN ---
Progress Note - Text Progress Note Date: 03/21/19 Patient without complaints. Nausea subsided with aggressive treatment. Pain controlled. Denies headache. Slight pruritis. Spinal site clean and dry. A/P POD#1 s/p vaginal hysterectomy w/ spinal duramorph - doing well
[2019-03-21 08:10] LABS: Basophils % (A) 0 %; Eosinophils % (A) 0 %; HGB 13.3 gm/dL (11.4-16.0); Lymphocytes # (A) 1.1 k/uL (1.0-4.8); Lymphocytes % (A) 14 %; MCH 29.9 pg (25.0-35.0); MCHC 31.6 g/dL (31.0-37.0); MCV 94.6 fL (80.0-100.0); Mean Platelet Volume 6.6; Monocytes # (A) 0.3 k/uL (0-1.0); Monocytes % (A) 3 %; Neutrophils # (A) 6.3 k/uL (1.3-7.7); Neutrophils % (A) 81 %; Platelet Count 268 k/uL (150-450); RBC 4.44 m/uL (3.80-5.40); RDW 13.5 % (11.5-15.5); WBC 7.8 k/uL (3.8-10.6)
[2019-03-21 08:40] LABS: African American GFR (CKD) >90 (>60 ml/min/1.73 sqM); Anion Gap 11 mmol/L; Blood Urea Nitrogen 2 mg/dL (7-17); Calcium 9.2 mg/dL (8.4-10.2); Carbon Dioxide 22 mmol/L (22-30); Chloride 105 mmol/L (98-107); Glucose 111 mg/dL (74-99); Potassium 3.7 mmol/L (3.5-5.1); Sodium 138 mmol/L (137-145)
[2019-03-21] MEDS: PREGABALIN 75 MG CAP PO SCH ×3 (09:15→22:44)
[2019-03-21] MEDS: VERAPAMIL 80 MG TAB PO SCH ×3 (09:15→22:44)
[2019-03-21] MEDS: TOPIRAMATE 25 MG TAB PO SCH (09:15)
[2019-03-21] MEDS: ALVIMOPAN 12 MG CAPSULE PO SCH ×2 (09:15→22:44)
[2019-03-21] MEDS ORDERED: ACETAMINOPHEN TAB 325 MG TAB PO PRN (12:58)
--- NOTE | 2019-03-21 13:03 | P.PN ---
<Gracie Hernandez Zachary - Last Filed: 03/21/19 12:53> Subjective Progress Note Date: 03/21/19 CHIEF COMPLAINT: history of perforated diverticulitis HISTORY OF PRESENT ILLNESS: 53-year-old female who underwent low anterior resection. Postop day #2. Patient seen and examined at the bedside. Patient reports her pain is tolerable. Epidural is currently infusing. She is tolerating clear liquid diet. Denies nausea or vomiting. Patient denies BM today. She is passing flatus. Patient reports not using IS as often as she was instructed to. Patient also reports she only got up yesterday to the bathroom. She did not ambulate in the hallways or sit in the chair. WBC 7.8. Patient febrile overnight with a temperature of 103.0 degrees Fahrenheit. Temperature this morning 99.3. PHYSICAL EXAM: VITAL SIGNS: Reviewed. GENERAL: Well-developed in no acute distress. HEENT: No sclera icterus. Extraocular movements grossly intact. Moist buccal mucosa. Head is atraumatic, normocephalic. ABDOMEN: Soft. Nondistended. minimal tenderness. PREVENA wound management system noted. NEUROLOGIC: Alert and oriented. Cranial nerves II through XII grossly intact. ASSESSMENT: 1. History of perforated diverticulitis, status post low anterior resection 2. Fever, suspect secondary to atelectasis, an expected outcome secondary to p atient not ambulating or use incentive spirometery PLAN: 1. Advance diet to full liquid. Dr. Menon would like diet slowly advanced. 2. Pain control. Continue epidural. Remove postop day #3. Patient will resume home dose of [place] 10 after epidural discontinued 3. Continue Roger catheter while epidural in place 4. Incentive spirometry 10 times an hour 5. Activity as tolerated. Patient instructed to be OOB for all meals in the chair and ambulating in the hallways Nurse practitioner note has been reviewed by physician. Signing provider agrees with the documented findings, assessment, and plan of care. Objective - Vital Signs Vital signs: Vital Signs Temp 99.3 F 03/21/19 09:19 Pulse 122 H 03/21/19 07:00 Resp 16 03/21/19 07:00 BP 123/67 03/21/19 07:00 Pulse Ox 100 03/21/19 07:00 Intake & Output 03/20/19 03/21/19 03/21/19 18:59 06:59 18:59 Intake Total 207 Output Total 1500 1275 Balance 570 -1275 Intake: Intake, IV Titration 1170 Amount D5-0.45% NaCl with KCl 1000 20Meq/l 1,000 ml @ 125 mls/hr IV .Q8H [facility] Rx#: [id number] Ropivacaine 400 mg 170 Hydromorphone (Pf) 5 mg In Sodium Chloride 0.9% 170 ml @ Per Protocol EPIDURAL .Q0M PRN Rx#: [id number] Oral 900 Output: Urine 1500 1275 Other: Voiding Method Indwelling Catheter Indwelling Catheter Indwelling Catheter # Voids 1 - Labs CBC & Chem 7: 03/21/19 07:20 03/21/19 07:20 Labs: Abnormal Lab Results - Last 24 Hours (Table) 03/21/19 Range/Units 07:20 BUN 2 L (7-17) mg/dL Glucose 111 H (74-99) mg/dL <Hany Goodman - Last Filed: 03/21/19 16:39> Subjective As above. Patient was febrile last night. She otherwise feels well. Tolerating her full liquid diet. Has had both flatus and bowel movements today. White blood cell count earlier today was 7.8. When the patient was febrile she was tachycardic. Repeat temperature and heart rate recently however showed a temperature of 100 and heart rate still on the high 120s. Patient's blood pressure also decreased from previous with systolic in the 90s. Epidural at 8. We'll decrease epidural rate. CBC was rechecked. White blood cell count slightly elevated. Hemoglobin stable. We'll plan IV bolus. Continue pulmonary toilet. Patient's incision without evidence of erythema. We'll follow closely. Objective - Vital Signs Vital signs: Vital Signs Temp 100 F H 03/21/19 15:00 Pulse 129 H 03/21/19 15:00 Resp 12 03/21/19 15:00 BP 86/51 03/21/19 15:00 Pulse Ox 100 03/21/19 15:00 Intake & Output 03/20/19 03/21/19 03/21/19 18:59 06:59 18:59 Intake Total 207 140.933 Output Total 1500 1275 700 Balance 570 -1275 -559.067 Intake: Intake, IV Titration 1170 140.933 Amount D5-0.45% NaCl with KCl 1000 20Meq/l 1,000 ml @ 125 mls/hr IV .Q8H [facility] Rx#: [id number] Ropivacaine 400 mg 170 140.933 Hydromorphone (Pf) 5 mg In Sodium Chloride 0.9% 170 ml @ Per Protocol EPIDURAL .Q0M PRN Rx#: [id number] Oral 900 Output: Urine 1500 1275 700 Other: Voiding Method Indwelling Catheter Indwelling Catheter Indwelling Catheter # Voids 1 - Labs CBC & Chem 7: 03/21/19 15:09 03/21/19 07:20 Labs: Abnormal Lab Results - Last 24 Hours (Table) 03/21/19 03/21/19 Range/Units 07:20 15:09 WBC 11.3 H (3.8-10.6) k/uL BUN 2 L (7-17) mg/dL Glucose 111 H (74-99) mg/dL
[2019-03-21] MEDS ORDERED: SODIUM CHLORIDE 0.9% 1,000 ML IV ONE (14:51)
[2019-03-21 15:42] LABS: HCT 39.2 % (34.0-46.0); HGB 12.2 gm/dL (11.4-16.0); MCH 29.5 pg (25.0-35.0); MCHC 31.2 g/dL (31.0-37.0); MCV 94.8 fL (80.0-100.0); Mean Platelet Volume 6.6; Platelet Count 317 k/uL (150-450); RBC 4.13 m/uL (3.80-5.40); RDW 13.7 % (11.5-15.5); WBC 11.3 k/uL (3.8-10.6)
--- NOTE | 2019-03-21 16:24 | XR ---
EXAMINATION TYPE: XR chest 1V portable DATE OF EXAM: 03/21/2019 HISTORY: Shortness of breath. COMPARISON: None. TECHNIQUE: Single view of the chest is submitted. FINDINGS: Demonstrated are scattered senescent parenchymal change. There is no evidence for focal infiltrate. The heart is stable. Hilar and mediastinal structures are within normal limits. Degenerative changes are seen of the dorsal spine. IMPRESSION: 1. Chronic changes without evidence for acute pulmonary disease.
--- NOTE | 2019-03-21 18:53 | PN ---
PROGRESS NOTE DATE OF SERVICE: 03/21/2019 This 53-year-old woman was admitted after low anterior sigmoid resection, is running some mild fever. Patient has occasional cough also. No chest pain. No palpitations. Occasion fever is noted. EXAM: Alert and oriented times three. Pulse is 129, blood pressure 85/62, respiration 12, temperature 100 degrees, pulse ox 100 percent on room air. HEENT: Conjunctivae normal. NECK: No JVD. CARDIOVASCULAR: S1, S2 muffled. RESPIRATORY: Breath sounds diminished in the bases. Scattered rhonchi. ABDOMEN is soft, status post surgery. NERVOUS SYSTEM: No focal deficits. LABS: WBC 11.3, sodium 130, potassium 3.7. ASSESSMENT: 1. Status post low anterior sigmoid resection with history of perforated diverticulitis. 2. Mild postoperative fever. 3. Increased WBC. 4. Hypokalemia. 5. Fibromyalgia. 6. Gastroesophageal reflux disease. 7. Degenerative joint disease. 8. History of nephrolithiasis. 9. History of migraines. 10.History of cholecystectomy. 11.James fundoplication. 12.History of anxiety. 13.Remote history of nicotine dependence. RECOMMENDATIONS AND DISCUSSION: Continue current medications, management and symptomatic treatment. Otherwise, recommend chest x-ray as well as repeat labs. UA with micro also. Continue the rest of medications. Incentive spirometry. Further recommendations to follow. MMODL / IJN: [id number] /
[2019-03-21] MEDS: MONTELUKAST 10 MG TAB PO SCH (22:44)
[2019-03-21] MEDS: TOPIRAMATE 100 MG TAB PO SCH (22:44)
[2019-03-21] MEDS: AMITRIPTYLINE HCL 50 MG TAB PO SCH (22:45)
[2019-03-22] MEDS ORDERED: MORPHINE SULFATE 2 MG/ML SYRINGE IVP PRN (02:06)
[2019-03-22] MEDS: D5-0.45% NACL WITH KCL 20MEQ/L 1,000 ML IV SCH ×3 (04:26→18:16)
[2019-03-22] MEDS: LACTATED RINGERS 1,000 ML IV SCH (05:46)
[2019-03-22 07:03] LABS: Appearance,Urine Clear (Clear); Bilirubin,Urine Negative (Negative); Blood,Urine Negative (Negative); Color,Urine Light Yellow; Glucose,Urine (UA) Negative (Negative); Ketones,Urine Negative (Negative); Leukocyte Esterase,Urine Negative (Negative); Nitrite,Urine Negative (Negative); Protein,Urine Negative (Negative); Specific Gravity,Urine 1.009 (1.001-1.035); Urobilinogen,Urine <2.0 mg/dL (<2.0)
[2019-03-22 08:01] LABS: Basophils # (A) 0.1 k/uL (0-0.2); Basophils % (A) 1 %; Eosinophils # (A) 0.1 k/uL (0-0.7); Eosinophils % (A) 1 %; Lymphocytes % (A) 34 %; MCH 28.8 pg (25.0-35.0); MCHC 30.5 g/dL (31.0-37.0); MCV 94.4 fL (80.0-100.0); Mean Platelet Volume 6.5; Monocytes # (A) 0.5 k/uL (0-1.0); Monocytes % (A) 6 %; Neutrophils % (A) 56 %; Platelet Count 252 k/uL (150-450); RBC 3.81 m/uL (3.80-5.40); RDW 13.7 % (11.5-15.5); WBC 8.9 k/uL (3.8-10.6)
[2019-03-22 08:13] LABS: African American GFR (CKD) >90 (>60 ml/min/1.73 sqM); Anion Gap 6 mmol/L; Blood Urea Nitrogen 4 mg/dL (7-17); Calcium 8.6 mg/dL (8.4-10.2); Carbon Dioxide 21 mmol/L (22-30); Chloride 114 mmol/L (98-107); Glucose 100 mg/dL (74-99); Potassium 4.1 mmol/L (3.5-5.1); Sodium 141 mmol/L (137-145)
[2019-03-22] MEDS: PREGABALIN 75 MG CAP PO SCH ×3 (09:54→22:10)
[2019-03-22] MEDS: VERAPAMIL 80 MG TAB PO SCH ×2 (09:54→16:42)
[2019-03-22] MEDS: TOPIRAMATE 25 MG TAB PO SCH (09:56)
[2019-03-22] MEDS: ALVIMOPAN 12 MG CAPSULE PO SCH ×2 (09:57→22:18)
[2019-03-22] MEDS ORDERED: HYDROmorphone 1 MG/ML 1 ML SYRINGE IVP PRN (10:04)
--- NOTE | 2019-03-22 10:08 | P.PN ---
Subjective Progress Note Date: 03/22/19 Principal diagnosis: Post low anterior resection Overnight the patient's epidural was placed on hold. The patient then developed significant abdominal pain. She states she was having pain and left-sided that was 10 out of 10. The epidural was then restarted at a lower rate. She was also given morphine. She did feel better after that and was able to sleep. Today she is sitting up at the bedside. She did move her bowels today. Her white blood cell count on repeat remains normal at 8.9. It had gone up to 11 last night. Vitals likewise improved. Temp 97.9, heart rate 91, BP 109/70. Lactic acid was checked this morning and was elevated at 2.8. Patient still having some pain left midabdomen. No nausea or vomiting. She felt chills last night. Objective - Vital Signs Vital signs: Vital Signs Temp 98.1 F 03/22/19 09:35 Pulse 91 03/22/19 07:07 Resp 18 03/22/19 09:35 BP 105/70 03/22/19 09:35 Pulse Ox 95 03/22/19 07:07 Intake & Output 03/21/19 03/22/19 03/22/19 18:59 06:59 18:59 Intake Total 168.233 Output Total 700 2200 Balance -531.767 -2200 Intake: Intake, IV Titration 168.233 Amount Ropivacaine 400 mg 168.233 Hydromorphone (Pf) 5 mg In Sodium Chloride 0.9% 170 ml @ Per Protocol EPIDURAL .Q0M PRN Rx#: [id number] Output: Urine 700 2200 Other: Voiding Method Indwelling Catheter Indwelling Catheter - Exam Abdomen: Soft, nondistended, mild left-sided tenderness, incision clean and dry - Labs CBC & Chem 7: 03/22/19 07:22 03/22/19 07:22 Labs: Abnormal Lab Results - Last 24 Hours (Table) 03/21/19 03/22/19 03/22/19 Range/Units 15:09 07:22 07:22 WBC 11.3 H (3.8-10.6) k/uL Hgb 11.0 L (11.4-16.0) gm/dL MCHC 30.5 L (31.0-37.0) g/dL Chloride 114 H (98-107) mmol/L Carbon Dioxide 21 L (22-30) mmol/L BUN 4 L (7-17) mg/dL Glucose 100 H (74-99) mg/dL Plasma Lactic Acid Kishor (0.7-2.0) mmol/L 03/22/19 Range/Units 08:45 WBC (3.8-10.6) k/uL Hgb (11.4-16.0) gm/dL MCHC (31.0-37.0) g/dL Chloride (98-107) mmol/L Carbon Dioxide (22-30) mmol/L BUN (7-17) mg/dL Glucose (74-99) mg/dL Plasma Lactic Acid Kishor 2.8 H* (0.7-2.0) mmol/L Assessment and Plan (1) Diverticulitis Narrative/Plan: Options review the patient. We'll proceed with CT abdomen and pelvis to evaluate anastomotic site. Keep nothing by mouth until those results are back. Resume subcu heparin. Patient's epidural will be removed today. Keep Roger until after CAT scan. Add Toradol, Dilaudid, [place] for pain. Current Visit: Yes Status: Acute Code(s): K57.92 - DVTRCLI OF INTEST, PART UNSP, W/O PERF OR ABSCESS W/O BLEED SNOMED Code(s): 113600498
[2019-03-22] MEDS: IOPAMIDOL-300 CONTRAST 30 ML VIAL (ORAL USE) PO PRN ×2 (10:22→11:31)
[2019-03-22] MEDS: KETOROLAC 30 MG/ML 1 ML VIAL IVP SCH ×2 (11:31→18:14)
[2019-03-22] MEDS: NYSTATIN 100,000 UNIT/ML SUSP 500,000 UNIT/5 ML CUP PO SCH ×2 (11:31→22:19)
--- NOTE | 2019-03-22 12:57 | CT ---
EXAMINATION TYPE: CT abdomen pelvis w con DATE OF EXAM: 03/22/2019 REFERENCE: NONE HISTORY: Evaluate anastomosis HISTORY: Evaluate Anastomosis REFERENCE: NONE CT DLP: 479.1 mGy Automated exposure control for dose reduction was used. TECHNIQUE: Helical acquisition through the abdomen and pelvis was obtained following the oral ingesti on of with Oral Contrast and following intravenous administration of 100 mL of Isovue 300. The data w as reformatted in axial, coronal and sagittal projections. FINDINGS: There are small, bilateral effusions, slightly greater on the right than the left. There i s some dependent atelectasis in the dependent portions of the lungs. There is no pericardial fluid. T he heart is not enlarged. There is been previous hiatal hernia surgery. Within the abdomen, the gallbladder is been removed. Liver and spleen appear normal. Both adrenal glands appear normal. Both kidneys demonstrate function and appear morphologically normal. The pancreas is unremarkable. There is no significant retroperitoneal, iliac or inguinal adenopathy. The uterus and ovaries are unremarkable. There is follicular change within the ovaries. There is a Roger catheter within the bladder. There are scattered diverticula within the sigmoid colon without radiographic evidence of diverticuli tis. There is been a previous sigmoid resection. The anastomosis site may be mildly narrowed. There i s no evidence of extravasation. Small bowel loops are normal in caliber. There is no evidence of free fluid or free air. There are metallic skin sutures in place. No bony destructive lesion is seen. IMPRESSION: 1. SOME MILD NARROWING ANASTOMOSIS SITE. THERE IS NO EVIDENCE OF EXTRAVASATION. 2. BILATERAL PLEURAL EFFUSIONS, GREATER ON THE RIGHT LEFT. 3. MINIMAL DIVERTICULAR CHANGES WITHIN THE SIGMOID COLON. 4. POSTSURGICAL CHANGE.
[2019-03-22] MEDS: HYDROcodone/APAP 5-325MG 1 EACH TAB PO PRN ×2 (14:34→22:18)
--- NOTE | 2019-03-22 15:02 | P.PN ---
Progress Note - Text Progress Note Date: 03/22/19 POD 3 from ex lap. Patient had hypotension overnight, epidural turned off, pain increased significantly so morphine 2mg given. This morning she was doing well after the epidural was turned back on. She was examined by surgery team and sent for CT scan, No evidence of infection or bleeding. Epidural site was clean. catheter to be removed today.
[2019-03-22] MEDS: HEPARIN SODIUM,PORCINE 5,000 UNIT/ML 1 ML VIAL SQ SCH (16:42)
--- NOTE | 2019-03-22 18:46 | XR ---
EXAMINATION TYPE: XR chest 1V portable DATE OF EXAM: 03/22/2019 Comparison: 03/21/2019 Clinical History: 53-year-old female with CHF Findings: The cardiomediastinal silhouette, aorta, and pulmonary vasculature are within normal limits. Lungs and pleural spaces are clear. Trace free air below the right hemidiaphragm. Impression: No acute cardiopulmonary process. Trace free air below the right hemidiaphragm, possibly postsurgica l in the setting of recent surgery. Clinically correlate. Findings called to nurse Saab on 4SSUR at 6:40pm.
--- NOTE | 2019-03-22 21:43 | PN ---
PROGRESS NOTE DATE OF SERVICE: 03/22/2019. This 53-year-old woman who was admitted after low anterior sigmoid resection with perforated diverticulitis also had mild postoperative fever. Patient also complaining of mild abdominal pain. Dr. Goodman recommended an abdominal pelvis CAT scan which showed some mild narrowing in the anastomotic sites but no evidence of extravasation, bilateral pleural effusion, minimal was noted. No chest pain. No palpitations. No fever. The patient was mildly hypertensive last night. No chest pain. No palpitations. PAST MEDICAL HISTORY: Reviewed. REVIEW OF SYSTEMS: CARDIOVASCULAR system: No angina or palpitations. RESPIRATION: As mentioned earlier. GI mentioned earlier. : No dysuria. NERVOUS SYSTEM: No numbness or weakness. CURRENT MEDICATIONS: Reviewed and include: 1. Tylenol p.r.n. 2. [place] 5 mg q.4 p.r.n. 3. Xanax 0.5 b.i.d. 4. Entereg. 5. 12 mg p.o. b.i.d. 6. Elavil 50 mg q.h.s. 7. Benadryl 25 mg q.h.s. 8. Colace 100 mg b.i.d. 9. Heparin. 10.Dilaudid 1 mg q.3h. 11.Toradol. 12.Singulair. 13.Narcan. 14.Zofran. 15.Lyrica. 16.Imitrex. 17.Topamax. 18.Isoptin 80 mg p.o. t.i.d. PHYSICAL EXAM: Patient is alert, oriented x3. Pulse is 91. Blood pressure 109/70, respiration 14, temperature 97.9, pulse ox 94% on room air. HEENT is conjunctivae normal. Oral mucosa moist. NECK is no jugular venous distention. No carotid bruit. No lymph node enlargement. CARDIOVASCULAR SYSTEM: S1, S2 muffled. RESPIRATORY: Breath sounds diminished in the bases. A few scattered rhonchi and crackles. ABDOMEN: Soft, minimal tenderness. Postop. No guarding. No rigidity. LEGS: No edema. No swelling. CENTRAL NERVOUS SYSTEM: No focal deficits. LABS: At this time shows: WBC 8.9, hemoglobin 11, lactic acid 2.8. ASSESSMENT: 1. Status post low anterior sigmoid resection for history of perforated diverticulitis. 2. Mild postoperative fever. 3. Increased WBC. 4. Hypokalemia. 5. Fibromyalgia. 6. Gastroesophageal reflux disease. 7. History of degenerative joint disease. 8. History of nephrolithiasis. 9. History of migraines. 10.History of cholecystectomy. 11.History of James fundoplication. 12.History of anxiety. 13.Remote history of nicotine dependence. 14.Bilateral pleural effusion. RECOMMENDATIONS AND DISCUSSION: Recommend to continue current medications, symptomatic treatment. Otherwise, at this time, I recommend continue with IV fluids. This also had in the final diagnosis. Recommend repeat chest x-ray and also 1 time dose of Lasix and hold Isoptin for now till the blood pressure is stabilized. Further recommendations to follow. See orders for details. MMODL / IJN: [id number] /
[2019-03-22] MEDS: AMITRIPTYLINE HCL 50 MG TAB PO SCH (22:18)
[2019-03-22] MEDS: MONTELUKAST 10 MG TAB PO SCH (22:18)
[2019-03-22] MEDS: TOPIRAMATE 100 MG TAB PO SCH (22:19)
[2019-03-23] MEDS: D5-0.45% NACL WITH KCL 20MEQ/L 1,000 ML IV SCH ×4 (00:35→23:12)
[2019-03-23] MEDS: HEPARIN SODIUM,PORCINE 5,000 UNIT/ML 1 ML VIAL SQ SCH ×4 (00:35→23:12)
[2019-03-23] MEDS: KETOROLAC 30 MG/ML 1 ML VIAL IVP SCH ×5 (00:35→23:11)
[2019-03-23] MEDS: LACTATED RINGERS 1,000 ML IV SCH (01:55)
[2019-03-23 07:36] LABS: Basophils # (A) 0.1 k/uL (0-0.2); Basophils % (A) 1 %; Eosinophils # (A) 0.3 k/uL (0-0.7); Eosinophils % (A) 3 %; HCT 35.5 % (34.0-46.0); HGB 11.1 gm/dL (11.4-16.0); Lymphocytes # (A) 2.4 k/uL (1.0-4.8); Lymphocytes % (A) 30 %; MCH 29.6 pg (25.0-35.0); MCHC 31.4 g/dL (31.0-37.0); MCV 94.1 fL (80.0-100.0); Mean Platelet Volume 6.2; Monocytes # (A) 0.3 k/uL (0-1.0); Monocytes % (A) 4 %; Neutrophils # (A) 4.9 k/uL (1.3-7.7); Neutrophils % (A) 60 %; Platelet Count 257 k/uL (150-450); RBC 3.77 m/uL (3.80-5.40); RDW 13.6 % (11.5-15.5); WBC 8.2 k/uL (3.8-10.6)
[2019-03-23 07:53] LABS: African American GFR (CKD) >90 (>60 ml/min/1.73 sqM); Anion Gap 6 mmol/L; Blood Urea Nitrogen 3 mg/dL (7-17); Calcium 8.9 mg/dL (8.4-10.2); Carbon Dioxide 22 mmol/L (22-30); Chloride 115 mmol/L (98-107); Glucose 108 mg/dL (74-99); Potassium 3.9 mmol/L (3.5-5.1); Sodium 143 mmol/L (137-145)
--- NOTE | 2019-03-23 08:14 | P.PN ---
Subjective Progress Note Date: 03/23/19 Principal diagnosis: Post low anterior resection Patient doing much better today. Minimal pain. Controlled with [place]. Lactic acid had normalized. Today's blood cell count and hemoglobin are stable. She is afebrile. No further tachycardia. She is still having loose stools. Denies nausea or vomiting. Objective - Vital Signs Vital signs: Vital Signs Temp 97.7 F 03/23/19 03:10 Pulse 78 03/23/19 03:10 Resp 17 03/23/19 03:10 BP 123/79 03/23/19 03:10 Pulse Ox 97 03/23/19 03:10 Intake & Output 03/22/19 03/23/19 03/23/19 18:59 06:59 18:59 Intake Total 1100 Output Total 1650 1850 Balance -1650 -750 Intake: Intake, IV Titration 850 Amount D5-0.45% NaCl with KCl 850 20Meq/l 1,000 ml @ 125 mls/hr IV .Q8H [facility] Rx#: [id number] Oral 250 Output: Urine 1650 1850 Other: Voiding Method Indwelling Catheter Indwelling Catheter - Exam Abdomen: Soft, nondistended, mild lower abdominal tenderness, incision clean and dry - Labs CBC & Chem 7: 03/23/19 07:16 03/23/19 07:16 Labs: Abnormal Lab Results - Last 24 Hours (Table) 03/22/19 03/22/19 03/23/19 Range/Units 07:22 08:45 07:16 RBC 3.77 L (3.80-5.40) m/uL Hgb 11.1 L (11.4-16.0) gm/dL Chloride 114 H (98-107) mmol/L Carbon Dioxide 21 L (22-30) mmol/L BUN 4 L (7-17) mg/dL Glucose 100 H (74-99) mg/dL Plasma Lactic Acid Kishor 2.8 H* (0.7-2.0) mmol/L 03/23/19 Range/Units 07:16 RBC (3.80-5.40) m/uL Hgb (11.4-16.0) gm/dL Chloride 115 H (98-107) mmol/L Carbon Dioxide (22-30) mmol/L BUN 3 L (7-17) mg/dL Glucose 108 H (74-99) mg/dL Plasma Lactic Acid Kishor (0.7-2.0) mmol/L Assessment and Plan (1) Diverticulitis Narrative/Plan: Patient doing quite well at this time. We'll advance diet further. Remove Roger catheter. Home 24-48 hours. Current Visit: Yes Status: Acute Code(s): K57.92 - DVTRCLI OF INTEST, PART UNSP, W/O PERF OR ABSCESS W/O BLEED SNOMED Code(s): 385813593
[2019-03-23] MEDS: NYSTATIN 100,000 UNIT/ML SUSP 500,000 UNIT/5 ML CUP PO SCH ×3 (08:21→21:02)
[2019-03-23] MEDS: HYDROcodone/APAP 5-325MG 1 EACH TAB PO PRN (08:21)
[2019-03-23] MEDS: TOPIRAMATE 25 MG TAB PO SCH (08:22)
[2019-03-23] MEDS: ALVIMOPAN 12 MG CAPSULE PO SCH ×2 (08:22→21:03)
[2019-03-23] MEDS: PREGABALIN 75 MG CAP PO SCH ×3 (08:22→21:03)
[2019-03-23] MEDS: HYDROcodone/APAP 10-325MG 1 EACH TAB PO PRN ×2 (14:00→21:03)
--- NOTE | 2019-03-23 20:10 | PN ---
PROGRESS NOTE DATE OF SERVICE: 03/23/2019. This 57-year-old woman who was admitted after surgery for low anterior sigmoid resection is being closely monitored. No chest pain. No palpitations. No fever. A chest x-ray done yesterday showed no cardiomegaly. Surgery is following the following the patient closely. No chest pain. No palpitations. The patient's abdominal pain is controlled with [place]. Lactic acid has normalized. No chest pain. No palpitations. No fever. EXAM: Alert and oriented times three. Pulse 101. Blood pressure 120/74, respiration 18, temperature 97.6. Pulse ox 100 percent on room air. HEENT: Conjunctivae normal. NECK: No jugular venous distention. CARDIOVASCULAR: S1, S2 muffled. RESPIRATORY: Breath sounds diminished in the bases. A few rhonchi. No crackles. ABDOMEN is soft, no distention. No guarding. No rigidity. Bowel sounds present. LEGS are no edema. No swelling. CENTRAL NERVOUS SYSTEM: No focal deficits. LAB STUDIES: Labs noted. ASSESSMENT: 1. Status post low anterior sigmoid resection for history of perforated diverticulitis. 2. Mild postoperative fever, improved. 3. Increased WBC. 4. Hypokalemia. 5. Fibromyalgia. 6. Gastroesophageal reflux disease. 7. Elevated lactic acid, improved. 8. History of degenerative joint disease. 9. History of nephrolithiasis. 10.History of migraines. 11.History of cholecystectomy. 12.History of James fundoplication. 13.History of anxiety. 14.Remote history of nicotine dependence. 15.History of bilateral small pleural effusion on the chest x-ray. DISCUSSION AND RECOMMENDATIONS: Recommend to continue current medications, continue with monitoring, management and symptomatic treatment. Otherwise, at this time, I recommend closely follow with surgery. Incentive spirometry. DVT prophylaxis. See orders for details. Further recommendations to follow. MMODL / IJN: [id number] /
[2019-03-23] MEDS: TOPIRAMATE 100 MG TAB PO SCH (21:02)
[2019-03-23] MEDS: AMITRIPTYLINE HCL 50 MG TAB PO SCH (21:02)
[2019-03-23] MEDS: MONTELUKAST 10 MG TAB PO SCH (21:02)
[2019-03-24] MEDS: HYDROcodone/APAP 10-325MG 1 EACH TAB PO PRN ×3 (02:35→16:15)
[2019-03-24] MEDS: LACTATED RINGERS 1,000 ML IV SCH (05:14)
[2019-03-24] MEDS: KETOROLAC 30 MG/ML 1 ML VIAL IVP SCH (06:16)
[2019-03-24 08:10] LABS: Basophils # (A) 0.1 k/uL (0-0.2); Basophils % (A) 1 %; Eosinophils # (A) 0.3 k/uL (0-0.7); Eosinophils % (A) 4 %; HCT 38.9 % (34.0-46.0); HGB 12.2 gm/dL (11.4-16.0); Lymphocytes # (A) 2.3 k/uL (1.0-4.8); Lymphocytes % (A) 31 %; MCHC 31.4 g/dL (31.0-37.0); MCV 95.6 fL (80.0-100.0); Mean Platelet Volume 6.7; Monocytes # (A) 0.3 k/uL (0-1.0); Monocytes % (A) 4 %; Neutrophils # (A) 4.3 k/uL (1.3-7.7); Neutrophils % (A) 57 %; Platelet Count 304 k/uL (150-450); RBC 4.07 m/uL (3.80-5.40); RDW 14.5 % (11.5-15.5); WBC 7.6 k/uL (3.8-10.6)
[2019-03-24 08:23] LABS: African American GFR (CKD) >90 (>60 ml/min/1.73 sqM); Anion Gap 8 mmol/L; Blood Urea Nitrogen 2 mg/dL (7-17); Calcium 8.9 mg/dL (8.4-10.2); Carbon Dioxide 21 mmol/L (22-30); Chloride 115 mmol/L (98-107); Glucose 116 mg/dL (74-99); Potassium 3.8 mmol/L (3.5-5.1); Sodium 144 mmol/L (137-145)
[2019-03-24] MEDS: TOPIRAMATE 25 MG TAB PO SCH (09:18)
[2019-03-24] MEDS: ALVIMOPAN 12 MG CAPSULE PO SCH (09:19)
[2019-03-24] MEDS: PREGABALIN 75 MG CAP PO SCH ×2 (09:19→15:16)
[2019-03-24 09:20] VITALS: RESP 16
[2019-03-24] MEDS: NYSTATIN 100,000 UNIT/ML SUSP 500,000 UNIT/5 ML CUP PO SCH (09:20)
[2019-03-24] MEDS: HEPARIN SODIUM,PORCINE 5,000 UNIT/ML 1 ML VIAL SQ SCH ×2 (09:20→16:15)
[2019-03-24] MEDS: D5-0.45% NACL WITH KCL 20MEQ/L 1,000 ML IV SCH (10:58)
--- NOTE | 2019-03-24 11:59 | P.PN ---
Subjective Progress Note Date: 03/24/19 CHIEF COMPLAINT: history of perforated diverticulitis HISTORY OF PRESENT ILLNESS: 53-year-old female who underwent low anterior resection. Patient is tolerating low fiber diet. Denies nausea or vomiting. Passing flatus and having BMs. Pain controlled on oral medications. Vital signs stable. She is afebrile. WBC 7.6. PHYSICAL EXAM: VITAL SIGNS: Currently stable. GENERAL: Well-developed in no acute distress. HEENT: No sclera icterus. Extraocular movements grossly intact. Moist buccal mucosa. Head is atraumatic, normocephalic. Hears conversational speech. No nasal drainage. NECK: Supple without lymphadenopathy. CHEST: Non-labored respirations and equal bilateral excursions. CARDIOVASCULAR: Regular rate with regular rhythm. Palpable 2+ radial pulses. ABDOMEN: Soft. Nondistended. Minimal tenderness. PREVENA wound management system noted. MUSCULOSKELETAL: No clubbing, cyanosis or edema. NEUROLOGIC: No focal or lateralizing signs. Cranial nerves II through XII grossly intact. PSYCH: Appropriate affect. Alert and oriented to person, place and time. SKIN: Well perfused. Good skin turgor. ASSESSMENT: 1. History of perforated diverticulitis, status post low anterior resection 2. Fever, suspect secondary to atelectasis, an expected outcome secondary to patient not ambulating or use incentive spirometery, res PLAN: 1. Continue low fiber diet 2. Pain control. Continue home dose of [place] 10 3. Incentive spirometry 4. Activity as tolerated 5. Patient would like to be discharged home this evening. She declines home care needs. If patient is discharged home this evening will discontinue PREVENA today and place Optifoam prior to discharge. Otherwise will remove PREVENA tomorrow. Dr. Marcano to see patient this afternoon to determine if patient may be discharged home today. Nurse practitioner note has been reviewed by physician. Signing provider agrees with the documented findings, assessment, and plan of care. Objective - Vital Signs Vital signs: Vital Signs Temp 97.6 F 03/24/19 08:36 Pulse 90 03/24/19 08:36 Resp 16 03/24/19 08:36 BP 138/84 03/24/19 08:36 Pulse Ox 99 03/24/19 08:36 Intake & Output 03/23/19 03/24/19 03/24/19 18:59 06:59 18:59 Intake Total 598 1800 Output Total 1800 Balance -1202 1800 Intake: Intake, IV Titration 1100 Amount D5-0.45% NaCl with KCl 1100 20Meq/l 1,000 ml @ 125 mls/hr IV .Q8H [facility] Rx#: [id number] Oral 598 700 Output: Urine 1800 Uretheral (Roger) 1400 Other: Voiding Method Indwelling Catheter Toilet # Voids 1 # Bowel Movements 1 - Labs CBC & Chem 7: 03/24/19 07:53 03/24/19 07:53 Labs: Abnormal Lab Results - Last 24 Hours (Table) 03/24/19 Range/Units 07:53 Chloride 115 H (98-107) mmol/L Carbon Dioxide 21 L (22-30) mmol/L BUN 2 L (7-17) mg/dL Glucose 116 H (74-99) mg/dL
[2019-03-24 16:39] VITALS: BP 141/89; PULSE 106; TEMP 98
--- NOTE | 2019-03-24 16:44 | P.PN ---
Subjective Progress Note Date: 03/24/19 Principal diagnosis: History of Perforated diverticulitis. Currently status post low anterior sigmoid colon resection. Patient is a 53-year-old female was admitted to the hospital due to perforated diverticulitis and underwent low anterior sigmoid resection. Today patient denied any complaints of chest pain or shortness of breath. He did have some nausea which is improved with Zofran. No fever no chills. No other acute overnight issues. Patient was be discharged home today. Active Medications Acetaminophen (Tylenol Tab) 650 mg PO Q4HR PRN PRN Reason: Fever and/ or Pain Hydrocodone Bitart/Acetaminophen ([place] 10) 1 each PO Q6H PRN PRN Reason: Pain Last Admin: 03/24/19 16:15 Dose: 1 each Documented by: Alprazolam (Xanax) 0.25 mg PO BID PRN PRN Reason: Anxiety Last Admin: 03/23/19 10:27 Dose: 0.25 mg Documented by: Alvimopan (Entereg) 12 mg PO BID GUILLERMO Stop: 03/26/19 09:01 Last Admin: 03/24/19 09:19 Dose: 12 mg Documented by: Amitriptyline HCl (Elavil) 50 mg PO HS GUILLERMO Last Admin: 03/23/19 21:02 Dose: 50 mg Documented by: Diphenhydramine HCl (Benadryl) 25 mg IVP Q6HR PRN PRN Reason: Itching Docusate Sodium (Colace) 100 mg PO BID PRN PRN Reason: Constipation Heparin Sodium (Porcine) (Heparin) 5,000 unit SQ Q8HR GUILLERMO Last Admin: 03/24/19 16:15 Dose: 5,000 unit Documented by: Lactated Ringer's (Lactated Ringers) 1,000 mls @ 20 mls/hr IV .Q24H GUILLERMO Last Admin: 03/24/19 05:14 Dose: Not Given Documented by: Potassium Chloride/Dextrose/Sod Cl (D5%-1/2ns-Kcl 20 Meq/L Iv Solution) 1,000 mls @ 125 mls/hr IV .Q8H GUILLERMO Last Admin: 03/24/19 10:58 Dose: 125 mls/hr Documented by: Lidocaine HCl (.Xylocaine 1% Inj (10mg/Ml) For Iv Start) 0.1 ml INTRADERMA PER PROTOCOL PRN PRN Reason: IV Start Last Admin: 03/19/19 13:31 Dose: 0.1 ml Documented by: Montelukast Sodium (Singulair) 10 mg PO [facility] Last Admin: 03/23/19 21:02 Dose: 10 mg Documented by: Naloxone HCl (Narcan) 0.2 mg IV Q2M PRN PRN Reason: Opioid Reversal Nystatin (Mycostatin Oral Susp) 500,000 unit PO BID [facility] Last Admin: 03/24/19 09:20 Dose: Not Given Documented by: Ondansetron HCl (Zofran) 4 mg IVP Q8HR PRN PRN Reason: Nausea And Vomiting Last Admin: 03/24/19 15:19 Dose: 4 mg Documented by: Pregabalin (Lyrica) 75 mg PO TID [facility] Last Admin: 03/24/19 15:16 Dose: Not Given Documented by: Promethazine HCl (Phenergan) 25 mg PO DAILY PRN PRN Reason: migraines Sumatriptan Succinate (Imitrex) 100 mg PO DAILY PRN PRN Reason: migraines Topiramate (Topamax) 100 mg PO [facility] Last Admin: 03/23/19 21:02 Dose: 100 mg Documented by: Topiramate ([facility]amax) [facility] Last Admin: 03/24/19 09:18 Dose: 50 mg Documented by: Objective - Vital Signs Vital signs: Vital Signs Temp 97.7 F 03/24/19 12:21 Pulse 88 03/24/19 12:21 Resp 16 03/24/19 12:21 BP 136/84 03/24/19 12:21 Pulse Ox 99 03/24/19 12:21 Intake & Output 03/23/19 03/24/19 03/24/19 18:59 06:59 18:59 Intake Total 598 1800 300 Output Total 1800 Balance -1202 1800 300 Intake: Intake, IV Titration 1100 Amount D5-0.45% NaCl with KCl 1100 20Meq/l 1,000 ml @ 125 mls/hr IV .Q8H [facility] Rx#: [id number] Oral 598 700 300 Output: Urine 1800 Uretheral (Roger) 1400 Other: Voiding Method Indwelling Catheter Toilet # Voids 1 1 # Bowel Movements 1 - Exam PHYSICAL EXAMINATION: Patient is lying in the bed comfortably, no acute distress, awake alert and oriented.. HEENT: Normocephalic. Neck is supple. Pupils reactive. Nostrils clear. Oral cavity is moist. Ears reveal no drainage. Neck reveals no JVD, carotid bruits, or thyromegaly. CHEST EXAMINATION: Trachea is central. Symmetrical expansion. Lung [place] clear to auscultation and percussion. CARDIAC: Normal S1, S2 with no gallops. No murmurs ABDOMEN: Soft. Nontender. Wound management system in place. Bowel sounds normal. No organomegaly. No abdominal bruits. Extremities: reveal no edema. No clubbing or cyanosis Neurologically awake, alert, oriented x3 with well-coordinated movements. No focal deficits noted Skin: No rash or skin lesions. Psychiatric: Coperative. Nonsuicidal Musculoskeletal: No joint swelling or deformity. Normal range of motion. - Labs CBC & Chem 7: 03/24/19 07:53 03/24/19 07:53 Labs: Abnormal Lab Results - Last 24 Hours (Table) 03/24/19 Range/Units 07:53 Chloride 115 H (98-107) mmol/L Carbon Dioxide 21 L (22-30) mmol/L BUN 2 L (7-17) mg/dL Glucose 116 H (74-99) mg/dL Assessment and Plan Assessment: Status post low anterior sigmoid resection due to history of perforated diverticulitis. Postoperative fever likely due to atelectasis. Resolving now. Hypokalemia improved Fibromyalgia GERD Degenerative joint disease History of nephrolithiasis History of migraine headaches History of cholecystectomy History of James fundoplication Anxiety history of nicotine dependence History of bilateral small pleural effusions on chest x-ray Plan: Patient be continued on pain management, bowel regimen and DVT prophylaxis. Encourage incentive spirometry. Wound care as per surgery recommendations. Otherwise continue the current management and follow closely. Patient is eager to be discharged home today. We'll continue to follow with you. Further recommendations based on the clinical course. Time with Patient: Greater than 30
== END 2019-03-24 17:48 | disposition home or self-care (01) | DRG 330 ==
LOC: 2ORMAIN 11:35 → 4SSUR 16:33 → 6PED 03-24 07:35
PROVIDERS: ADMIT Surgery; ATTEND Surgery
PROC: 0DTN0ZZ Resection of Sigmoid Colon, Open Approach (ICD-10-PCS; principal; 2019-03-19 13:15)
DX: K57.32 Diverticulitis of large intestine without perforation or abscess without bleeding (principal); J90 Pleural effusion, not elsewhere classified; J98.11 Atelectasis; I95.9 Hypotension, unspecified; E87.6 Hypokalemia; F41.9 Anxiety disorder, unspecified; G43.909 Migraine, unspecified, not intractable, without status migrainosus; K21.9 Gastro-esophageal reflux disease without esophagitis; M19.90 Unspecified osteoarthritis, unspecified site; M79.7 Fibromyalgia; R50.9 Fever, unspecified; I10 Essential (primary) hypertension; M48.061 Spinal stenosis, lumbar region without neurogenic claudication; M51.16 Intervertebral disc disorders with radiculopathy, lumbar region; F32.9 Major depressive disorder, single episode, unspecified; K76.9 Liver disease, unspecified; D72.829 Elevated white blood cell count, unspecified; Z79.899 Other long term (current) drug therapy; Z88.8 Allergy status to other drugs, medicaments and biological substances; Z91.040 Latex allergy status; Z87.442 Personal history of urinary calculi; Z87.891 Personal history of nicotine dependence; Z90.49 Acquired absence of other specified parts of digestive tract; Z80.3 Family history of malignant neoplasm of breast; Z82.49 Family history of ischemic heart disease and other diseases of the circulatory system
CPT/HCPCS: 36415; 71045; 74177; 80048; 81003; 83605; 85025; 85027; 86850; 86900; 86901; 88307; 93005

== ENCOUNTER → 2019-05-12 | Outpatient (CLI) | payer OTHER ==
--- NOTE | 2019-05-13 06:57 | US ---
EXAMINATION TYPE: US carotid duplex BILAT DATE OF EXAM: 05/12/2019 COMPARISON: NONE CLINICAL HISTORY: G45.2 Transient Ichemia Attack, syncope EXAM MEASUREMENTS: RIGHT: Peak Systolic Velocity (PSV) cm/sec ----- Right CCA: 79.8 ----- Right ICA: 97.7 ----- Right ECA: 75.3 ICA/CCA ratio: 1.2 RIGHT: End Diastole cm/sec ----- Right CCA: 28.1 ----- Right ICA: 34.5 ----- Right ECA: 14.0 LEFT: Peak Systolic Velocity (PSV) cm/sec ----- Left CCA: 96.6 ----- Left ICA: 103.0 ----- Left ECA: 72.0 ICA/CCA ratio: 1.1 LEFT: End Diastole cm/sec ----- Left CCA: 38.9 ----- Left ICA: 42.7 ----- Left ECA: 15.8 VERTEBRALS (direction of flow): Right Vertebral: Antegrade Left Vertebral: Antegrade Rhythm: Normal Young scale images show no significant focal plaque at carotid bulb level bilaterally. Velocity measur ements and ratios remain within normal limits. IMPRESSION: No hemodynamically significant stenosis is seen in either internal carotid artery. Criteria for Assigning % of Stenosis / Diameter reduction (Estimation based on the indirect measurements of the internal carotid artery velocities (ICA PSV). 1. Normal (no stenosis)=ICA PSV < 125 cm/s: ratio < 2.0: ICA EDV<40 cm/s. 2. Less than 50% stenosis=ICA PSV < 125 cm/s: ratio < 2.0: ICA EDV<40 cm/s. 3. 50 to 69% stenosis=ICA PSV of 125 to 230 cm/s: ration 2.0 ? 4.0: ICA EDV 40-100 cm/s. 4. Greater than 70% stenosis to near occlusion= ICA PSV > 230 cm/s: ratio > 4.0: ICA EDV > 100 cm/s. 5. Near occlusion= ICA PSV velocities may be low or undetectable: variable ratio and ICA EDV. 6. Total occlusion=unable to detect flow.
== END ==
LOC: RADUSWWP 17:02
PROVIDERS: ATTEND Psychiatry & Neurology Neurology
DX: G45.2 Multiple and bilateral precerebral artery syndromes (principal)
CPT/HCPCS: 93880

== ENCOUNTER → 2020-03-04 | Outpatient (CLI) | payer OTHER ==
--- NOTE | 2020-03-04 11:37 | MM ---
Reason for exam: clinical finding. Last mammogram was performed 2 years and 8 months ago. History: Family history of breast cancer in mother at age 29 and breast cancer in maternal aunt. Excisional biopsy of the left breast, 1999. Took hormonal contraceptives for 5 years. Physical Findings: Nurse Summary: 1 x 1cm nodule in the left breast at 6 o'clock (nurse ts). MG 3D Diag Mammo W/Cad ALEX Bilateral CC and MLO view(s) were taken. Prior study comparison: June 28, 2017, bilateral MG 3d screening mammo w/cad. February 25, 2014, mammogram, performed at [facility]. Scattered asymmetric densities are unchanged. 6 o'clock palpable marker on the left. These results were verbally communicated with the patient and result sheet given to the patient on 03/04/20. ASSESSMENT: Incomplete: need additional imaging evaluation, BI-RAD 0 RECOMMENDATION: Ultrasound of the left breast.
--- NOTE | 2020-03-04 11:43 | USB ---
Reason for exam: additional evaluation requested from abnormal screening. History: Family history of breast cancer in mother at age 29 and breast cancer in maternal aunt. Excisional biopsy of the left breast, 1999. Took hormonal contraceptives for 5 years. US Breast LT Left complete breast ultrasound includes all four quadrants, the retroareolar region and axilla. Finding demonstrates a 0.5 x 0.3 x 0.4cm lymph node with benign features at 5 o'clock. As a precautionary measure, 6 month follow up is recommended. These results were verbally communicated with the patient and result sheet given to the patient on 03/04/20. ASSESSMENT: Probably benign, BI-RAD 3 RECOMMENDATION: Follow-up diagnostic mammogram of the left breast in 6 months. Manage patient on a clinical basis. If patient's lifetime risk is greater than 20%, she may qualify for screening MRI. Consider discussing with your physician.
== END | disposition home or self-care (01) ==
LOC: RADMAMWWP 08:05
PROVIDERS: ATTEND Family Medicine
DX: N63.20 Unspecified lump in the left breast, unspecified quadrant (principal); R92.8 Other abnormal and inconclusive findings on diagnostic imaging of breast
CPT/HCPCS: 77062; 77066

== ENCOUNTER → 2022-07-17 | Outpatient (CLI) | payer OTHER ==
[2022-07-18 09:37] LABS: Basophils # (A) 0.05 X 10*3/uL (0.00-0.10); Basophils % (A) 0.4 %; Eosinophils # (A) 0.13 X 10*3/uL (0.04-0.35); HCT 45.3 % (37.2-46.3); HGB 14.1 g/dL (12.0-15.0); Immature Grans, Automated 0.4 %; Lymphocytes # (A) 3.47 X 10*3/uL (0.90-5.00); Lymphocytes % (A) 27.7 %; MCH 30.3 pg (27.0-32.0); MCHC 31.1 g/dL (32.0-37.0); MCV 97.4 fL (80.0-97.0); Mean Platelet Volume 9.9 fL (9.5-12.2); Monocytes # (A) 0.64 X 10*3/uL (0.20-1.00); Monocytes % (A) 5.1 %; NRBC Per 100 WBC 0 /100 WBCS (0.0-0.0); Neutrophils # (A) 8.17 X 10*3/uL (1.80-7.70); Neutrophils % (A) 65.4 %; Platelet Count 378 X 10*3/uL (140-440); RBC 4.65 X 10*6/uL (4.10-5.20); RDW 13.2 % (11.5-14.5); WBC 12.51 X 10*3/uL (4.50-10.00)
== END | disposition home or self-care (01) ==
LOC: LABPAT 15:05
PROVIDERS: ATTEND Surgery
DX: Z01.812 Encounter for preprocedural laboratory examination (principal); K43.0 Incisional hernia with obstruction, without gangrene
CPT/HCPCS: 36415; 85025

== ENCOUNTER 2022-07-25 05:31 | Day surgery (SDC) | payer OTHER ==
[2022-07-18 13:58] VITALS: BMI 25.0
[~2022-07-25 05:31] MED LIST changes: +ACETAMINOPHEN TAB 500 MG TAB PO PRN; -DEXAMETHASONE SOD PHOSPHATE 10 MG/ML 1 ML VIAL IV ONE; +HEPARIN SODIUM,PORCINE/PF 5,000 UNIT/0.5 ML SYRINGE SQ PRN; -HYDROmorphone 0.5 MG/0.5 ML SYRINGE IVP PRN; -LIDOCAINE 1% 20 ML VIAL (10MG/ML) FOR IV START INTRADERMA PRN; -MIDAZOLAM 2 MG/2 ML VIAL IV PRN; -ONDANSETRON 4 MG/2 ML VIAL IVP ONE; -fentaNYL (PF) 50 MCG/ML 2 ML AMP IV PRN; -metroNIDAZOLE-NS PMX 500 MG in SALINE 1 100ML.BAG IVPB ONE
[2022-07-25] MEDS ORDERED: LACTATED RINGERS 1,000 ML IV SCH (05:44)
[2022-07-25] MEDS ORDERED: DEXAMETHASONE SOD PHOSPHATE 4 MG/ML 1 ML VIAL IV ONE (05:44)
[2022-07-25] MEDS ORDERED: HYDROmorphone 0.5 MG/0.5 ML SYRINGE IVP PRN (05:44)
[2022-07-25] MEDS ORDERED: ONDANSETRON 4 MG/2 ML VIAL IVP ONE (05:44)
[2022-07-25 06:05] VITALS: TEMP 96.9
[2022-07-25 06:34] LABS: Basophils # (A) 0.1 k/uL (0-0.2); Basophils % (A) 1 %; Eosinophils # (A) 0.1 k/uL (0-0.7); Eosinophils % (A) 1 %; HCT 43.7 % (34.0-46.0); HGB 14.4 gm/dL (11.4-16.0); Lymphocytes # (A) 3.8 k/uL (1.0-4.8); Lymphocytes % (A) 38 %; MCH 31.1 pg (25.0-35.0); MCHC 32.9 g/dL (31.0-37.0); MCV 94.7 fL (80.0-100.0); Mean Platelet Volume 7.2; Monocytes # (A) 0.5 k/uL (0-1.0); Monocytes % (A) 5 %; Neutrophils # (A) 5.3 k/uL (1.3-7.7); Neutrophils % (A) 53 %; Platelet Count 367 k/uL (150-450); RBC 4.61 m/uL (3.80-5.40); RDW 12.7 % (11.5-15.5)
[2022-07-25] MEDS ORDERED: MIDAZOLAM 2 MG/2 ML VIAL IVP ONE (06:48)
[2022-07-25] MEDS ORDERED: BUPIVACAIN-EPI 0.25%-1:200,000 30 ML VIAL SQ ONE ×3 (07:08→08:11)
[2022-07-25] MEDS ORDERED: fentaNYL (PF) 50 MCG/ML 2 ML AMP ONE (07:12)
[2022-07-25] MEDS ORDERED: NEOSTIGMINE 1 MG/ML 10 ML VIAL ONE (07:12)
[2022-07-25] MEDS ORDERED: KETOROLAC 15 MG/ML 1 ML VIAL ONE (07:12)
[2022-07-25] MEDS ORDERED: HYDROmorphone (PF) 1 MG/ML ONE (07:12)
[2022-07-25] MEDS ORDERED: ROPIVACAINE 5 MG/ML 30 ML VIAL ONE (07:12)
[2022-07-25] MEDS ORDERED: SODIUM CHLORIDE 0.9% (PF) 10 ML VIAL ONE (07:12)
[2022-07-25] MEDS ORDERED: ROCURONIUM 10 MG/ML (5 ML VIAL) IV ONE (07:12)
[2022-07-25] MEDS ORDERED: LIDOCAINE 2% INJ 20 MG/ML (2 ML VIAL) ONE (07:12)
[2022-07-25] MEDS ORDERED: SUCCINYLCHOLINE CHLORIDE 200 MG/10 ML VIAL IV ONE (07:12)
[2022-07-25] MEDS ORDERED: MIDAZOLAM 2 MG/2 ML VIAL ONE (07:12)
[2022-07-25] MEDS ORDERED: PROPOFOL 10 MG/ML 20 ML VIAL IV ONE (07:12)
[2022-07-25] MEDS ORDERED: KETAMINE 10 MG/ML 20 ML VIAL ONE (07:12)
--- NOTE | 2022-07-25 07:18 | P.GSHP ---
History of Present Illness H&P Date: 07/25/22 Chief Complaint: Incisional hernia Is a 57-year-old female who presents today for laparoscopic robotic system repair of incisional hernia. Patient's previous history of sigmoid colectomy. Patient has a low midline scar. Superior portion of scar there is evidence of incisional hernia. Past Medical History Past Medical History: CVA/TIA, Fibromyalgia, GERD/Reflux, Hyperlipidemia, Hypertension, Osteoarthritis (OA) Additional Past Medical History / Comment(s): hx Kidney stones, migraines, ruptured discs with difficulty laying in bed long periods will need to roll to side to get out of bed, hx diverticulitis, 2019 TIA-no residual effects, hx hiatal hernia, "rt eye prism" History of Any Multi-Drug Resistant Organisms: None Reported Past Surgical History: Bowel Resection, Breast Surgery, Cholecystectomy, Orthopedic Surgery Additional Past Surgical History / Comment(s): D&C x2, Rt foot surgery, benign tumor L breast, tendon repair left ring finger, EGD,colonoscopy, hiatal hernia repair, Past Anesthesia/Blood Transfusion Reactions: Motion Sickness, Postoperative Nausea & Vomiting (PONV) Smoking Status: Former smoker - Past Family History Mother Family Medical History: Cancer Additional Family Medical History / Comment(s): Breast- age 33 Father Family Medical History: Deep Vein Thrombosis (DVT) Medications and Allergies Home Medications Medication Instructions Recorded Confirmed Type Pregabalin [Lyrica] 75 mg PO TID 08/08/17 07/18/22 History Verapamil [Isoptin] 80 mg PO TID 08/08/17 07/18/22 History Docusate [Colace] 100 mg PO BID PRN 03/13/19 07/25/22 History Inulin/Chromium Picolinate [Fiber 1 each PO DIRECTED 03/13/19 07/25/22 History Gummies Chew] Atorvastatin [Lipitor] 20 mg PO HS 07/18/22 07/25/22 History Fremanezumab-Vfrm [Ajovy 1 injection SQ QMONTHLY 07/18/22 07/25/22 History Autoinjector] Ibuprofen [Motrin] 800 mg PO TID PRN 07/18/22 07/18/22 History Ubrogepant [Ubrelvy] 100 mg PO DIRECTED PRN 07/18/22 07/25/22 History Allergies Allergy/AdvReac Type Severity Reaction Status Date / Time latex Allergy Rash/Hives/ Verified 07/25/22 05:53 swelling rizatriptan [From Maxalt] Allergy Itching Verified 07/25/22 05:53 bandaid Allergy Rash/Hives/ Uncoded 07/18/22 13:41 swelling Surgical - Exam Vital Signs Temp Pulse Resp BP Pulse Ox 96.9 F L 81 16 135/77 95 07/25/22 06:04 07/25/22 06:04 07/25/22 06:04 07/25/22 06:04 07/25/22 06:04 - General well developed, well nourished, no distress - Eyes PERRL - ENT normal pinna - Neck no masses - Respiratory normal expansion - Cardiovascular Rhythm: regular - Abdomen Abdomen: soft, non tender Hernia: incisional (5 cm incisional hernia located superior portion midline scar) Results - Labs 07/25/22 06:12 Assessment and Plan Assessment: Incisional hernia. We'll perform laparoscopic robotic-assisted repair.
--- NOTE | 2022-07-25 07:29 | P.ANPRN ---
Procedure Note - Anesthesia - Nerve Block Performed Bilateral Rectus Abdominis Time Out Performed: Yes (06:47) Date of Procedure: 07/25/22 Procedure Start Time: : Procedure Stop Time: : Location of Patient: PreOp Indication: Acute Post-Operative Pain, Requested by Surgeon (Dr Menon) Sedation Type: Sedate with meaningful contact maintained Preparation: Sterile Prep Position: Supine Catheter: None Needle Types: Pajunk Needle Gauge: 21 Ultrasound used to visualize needle placement: Yes Ultrasound used to observe medication spread: Yes Injectate: 0.5% Ropivacaine (see comment for volume) (15cc +10cc PF Normal saline each side) Blood Aspirated: No Pain Paresthesia on Injection Noted: No Resistance on Injection: Normal Image Stored and Saved: Yes Events: Uneventful and Well Tolerated
[2022-07-25] MEDS ORDERED: LACTATED RINGERS 1,000 ML IV ONE (08:10)
--- NOTE | 2022-07-25 08:20 | P.OP ---
Date of Procedure: 07/25/22 Preoperative Diagnosis: Incisional hernia Postoperative Diagnosis: Incarcerated incisional hernia Extensive adhesions Procedure(s) Performed: Laparoscopic robotic-assisted repair of incarcerated incisional hernia Laparoscopic lysis of adhesions Transversus abdominis plane block Anesthesia: LORENZO Surgeon: Kit Menon Estimated Blood Loss (ml): 5 Pathology: none sent Condition: stable Disposition: PACU Description of Procedure: The patient was placed on the operating table in the supine position. He received general anesthesia. His abdomen was prepped and draped usual fashion. Using a 5 mm optical trocar under direct visualization the peritoneal cavity was entered in the left upper quadrant. The abdomen was then insufflated. The laparoscope was placed back into the perineal cavity. Next a 8 mm robotic trocar was placed in the left lower quadrant and a 12 mm robotic trocar was placed in the left lateral position. The original 5 mm trocar was exchanged for a 8 mm robotic trocar. A four-quadrant transverse hospital block was performed with 1% local Xylocaine. The patient's placed in the left side up position. And the patient was docked to the robot. There were extensive adhesions along the midline scar. These were lysed with sharp dissection. Approximately 20 minutes of operative time used to lyse adhesions. The incisional hernia was visualized. The incarcerated omentum was dissected free. Using hook cautery the peritoneum over the incisional hernia was excised. The fascial opening was repaired using 0V LOC suture. Next a piece of 11 cm round ventral light ST mesh was placed into the. Cavity and secured with 2 OV lock suture. The patient was undocked the robot. The needles were retrieved. The fascia of the 12 mm trocar site was closed with 0 Ethibond suture. Skin was closed interrupted 3-0 Monocryl suture. Dermabond dressings was applied. Patient tolerated procedure well and was sent to recovery room stable condition.
[2022-07-25 08:40] VITALS: RESP 16
[2022-07-25 10:18] VITALS: BP 132/79; PULSE 83
== END 2022-07-25 11:08 | disposition home or self-care (01) ==
LOC: OR 05:31
PROVIDERS: ATTEND Surgery
DX: K43.0 Incisional hernia with obstruction, without gangrene (principal); K66.0 Peritoneal adhesions (postprocedural) (postinfection); E78.5 Hyperlipidemia, unspecified; I10 Essential (primary) hypertension; Z90.49 Acquired absence of other specified parts of digestive tract; K21.9 Gastro-esophageal reflux disease without esophagitis; G43.909 Migraine, unspecified, not intractable, without status migrainosus; M79.7 Fibromyalgia; Z86.73 Personal history of transient ischemic attack (TIA), and cerebral infarction without residual deficits; M19.90 Unspecified osteoarthritis, unspecified site; Z87.442 Personal history of urinary calculi; Z98.890 Other specified postprocedural states; Z87.891 Personal history of nicotine dependence; Z80.3 Family history of malignant neoplasm of breast; Z83.2 Family history of diseases of the blood and blood-forming organs and certain disorders involving the immune mechanism; Z79.1 Long term (current) use of non-steroidal anti-inflammatories (NSAID); Z79.02 Long term (current) use of antithrombotics/antiplatelets; Z79.899 Other long term (current) drug therapy; Z88.8 Allergy status to other drugs, medicaments and biological substances; Z91.040 Latex allergy status; Z91.048 Other nonmedicinal substance allergy status
CPT/HCPCS: 49655; 64488; 86900; 86901; 85025; 86850; C1781; J2250; J0330; J1100; J2710; J0690; J2405; J3010; J1170; J2795; J1885; J2704; J1644; J2001

== ENCOUNTER 2022-07-30 08:16 | Emergency (ER) | payer OTHER ==
[2022-07-30 08:25] VITALS: TEMP 98
[2022-07-30] MEDS ORDERED: SODIUM CHLORIDE 0.9% 1,000 ML IV STA (08:31)
[2022-07-30] MEDS ORDERED: MORPHINE SULFATE 4 MG/ML SYRINGE IV STA (08:53)
[2022-07-30] MEDS ORDERED: ONDANSETRON 4 MG/2 ML VIAL IVP STA (08:53)
[2022-07-30 08:57] LABS: Basophils # (A) 0.1 k/uL (0-0.2); Basophils % (A) 0 %; Eosinophils # (A) 0.1 k/uL (0-0.7); Eosinophils % (A) 1 %; HCT 46.8 % (34.0-46.0); HGB 15.5 gm/dL (11.4-16.0); Lymphocytes # (A) 2.8 k/uL (1.0-4.8); Lymphocytes % (A) 23 %; MCH 30.6 pg (25.0-35.0); MCV 92.5 fL (80.0-100.0); Mean Platelet Volume 7.5; Monocytes # (A) 0.5 k/uL (0-1.0); Monocytes % (A) 4 %; Neutrophils # (A) 8.8 k/uL (1.3-7.7); Neutrophils % (A) 71 %; Platelet Count 361 k/uL (150-450); RBC 5.06 m/uL (3.80-5.40); WBC 12.4 k/uL (3.8-10.6)
--- NOTE | 2022-07-30 08:57 | ED ---
General Adult HPI - General Chief complaint: Abdominal Pain Stated complaint: Post Op Complications,Syncope Time Seen by Provider: 07/30/22 08:27 Source: patient Mode of arrival: ambulatory Limitations: no limitations - History of Present Illness Initial comments: Dictation was produced using [employer] dictation software. please excuse any grammatical, word or spelling errors. Chief Complaint: 57-year-old male presents emergency department for postoperative abdominal pain History of Present Illness: Patient is a 57-year-old female she is postop day 5. On July 25 patient had hernia surgery repair performed by Dr. Menon. Zeus saenz also had lysis of adhesions during the procedure. Patient reports that since his surgery she's been having worsening incisional site pain at the left lower quadrant area. Denies fever, chills. She tried taking some pain medication nausea medicines at home did not improve. Patient weighs of nausea and poor appetite. Denies any vomiting. She localizes the pain to the left lower quadrant in between the 2 incisional sites. The ROS documented in this emergency department record has been reviewed and confirmed by me. Those systems with pertinent positive or negative responses have been documented in the HPI. All other systems are other negative and/or noncontributory. PHYSICAL EXAM: General Impression: Alert and oriented x3, acute distress secondary to pain HEENT: Normocephalic atraumatic, extra-ocular movements intact, pupils equal and reactive to light bilaterally, mucous membranes moist. Cardiovascular: Heart regular rate and rhythm Chest: Able to complete full sentences, no retractions, no tachypnea Abdomen: abdomen soft, diffuse tenderness worse in the left abdominal area, non- distended, no organomegaly, surgical sites dry and intact Musculoskeletal: Pulses present and equal in all extremities, no peripheral edema Motor: no focal deficits noted Neurological: CN II-XII grossly intact, no focal motor or sensory deficits noted Skin: Intact with no visualized rashes Psych: Normal affect and mood ED course: 57 her old female presents to the emergency department for postoperative abdominal pain. Patient is postop day 5 from hernia repair and lysis of adhesions vital signs upon arrival are within acceptable limits. Nursing notes and chart review was performed My EKG interpretation: Ventricular rate 76, sinus rhythm,. Interval 153, QS 17, QTC 417. No MA prolongation, no QTC prolongation, no ST or T-wave changes noted. EKG compared to 07/25/2022 showing no changes. Overall, this EKG is unremarkable Laboratory evaluation obtained. CBC, coag panel, metabolic panel is unremarkable. Computed tomography scan abdomen and pelvis with contrast shows postsurgical changes without any evidence for acute post op complications. Case discussed with patient's primary surgeon, Dr. Menon who is aware patient will see the patient and the clinic. Patient given refill on pain medications. Critical Care: no Critical Care time: n/a - Related Data Home Medications Medication Instructions Recorded Confirmed Pregabalin [Lyrica] 75 mg PO TID 08/08/17 07/18/22 Verapamil [Isoptin] 80 mg PO TID 08/08/17 07/18/22 Docusate [Colace] 100 mg PO BID PRN 03/13/19 07/25/22 Inulin/Chromium Picolinate [Fiber 1 each PO DIRECTED 03/13/19 07/25/22 Gummies Chew] Atorvastatin [Lipitor] 20 mg PO HS 07/18/22 07/25/22 Fremanezumab-Vfrm [Ajovy 1 injection SQ QMONTHLY 07/18/22 07/25/22 Autoinjector] Ibuprofen [Motrin] 800 mg PO TID PRN 07/18/22 07/18/22 Ubrogepant [Ubrelvy] 100 mg PO DIRECTED PRN 07/18/22 07/25/22 Previous Rx's Medication Instructions Recorded Acetaminophen Tab [Tylenol] 650 mg PO Q6H #30 tab 07/25/22 Docusate [Colace] 100 mg PO BID #20 capsule 07/25/22 Ibuprofen [Motrin] 600 mg PO Q6HR PRN #40 tab 07/25/22 oxyCODONE HCL [OxyIR] 5 mg PO Q6H PRN 3 Days #10 tab 07/25/22 oxyCODONE-APAP 10-325MG [Percocet 1 tab PO Q4HR PRN 3 Days #18 tab 07/30/22 10-325 mg] Allergies Allergy/AdvReac Type Severity Reaction Status Date / Time latex Allergy Rash/Hives/ Verified 07/30/22 08:25 swelling rizatriptan [From Maxalt] Allergy Itching Verified 07/30/22 08:25 bandaid Allergy Rash/Hives/ Uncoded 07/30/22 08:25 swelling Review of Systems ROS Statement: Those systems with pertinent positive or pertinent negative responses have been documented in the HPI. ROS Other: All systems not noted in ROS Statement are negative. Past Medical History Past Medical History: CVA/TIA, Fibromyalgia, GERD/Reflux, Hyperlipidemia, Hypertension, Osteoarthritis (OA) Additional Past Medical History / Comment(s): hx Kidney stones, migraines, ruptured discs with difficulty laying in bed long periods will need to roll to side to get out of bed, hx diverticulitis, 2019 TIA-no residual effects, hx hiatal hernia, "rt eye prism" History of Any Multi-Drug Resistant Organisms: None Reported Past Surgical History: Bowel Resection, Breast Surgery, Cholecystectomy, Orthopedic Surgery Additional Past Surgical History / Comment(s): D&C x2, Rt foot surgery, benign tumor L breast, tendon repair left ring finger, EGD,colonoscopy, hiatal hernia repair, Past Anesthesia/Blood Transfusion Reactions: Motion Sickness, Postoperative Nausea & Vomiting (PONV) Past Psychological History: Anxiety, Panic Disorder Smoking Status: Former smoker Past Alcohol Use History: None Reported Past Drug Use History: Marijuana - Past Family History Mother Family Medical History: Cancer Additional Family Medical History / Comment(s): Breast- age 33 Father Family Medical History: Deep Vein Thrombosis (DVT) General Exam Limitations: no limitations Course Vital Signs 07/30/22 07/30/22 08:22 09:56 Temperature 98 F Pulse Rate 81 91 Respiratory 20 18 Rate Blood Pressure 139/79 156/96 O2 Sat by Pulse 100 98 Oximetry Medical Decision Making - Lab Data Result diagrams: 07/30/22 08:49 07/30/22 09:04 Lab Results 07/30/22 07/30/22 07/30/22 Range/Units 08:49 09:04 09:04 WBC 12.4 H (3.8-10.6) k/uL RBC 5.06 (3.80-5.40) m/uL Hgb 15.5 (11.4-16.0) gm/dL Hct 46.8 H (34.0-46.0) % MCV 92.5 (80.0-100.0) fL MCH 30.6 (25.0-35.0) pg MCHC 33.0 (31.0-37.0) g/dL RDW 13.0 (11.5-15.5) % Plt Count 361 (150-450) k/uL MPV 7.5 Neutrophils % 71 % Lymphocytes % 23 % Monocytes % 4 % Eosinophils % 1 % Basophils % 0 % Neutrophils # 8.8 H (1.3-7.7) k/uL Lymphocytes # 2.8 (1.0-4.8) k/uL Monocytes # 0.5 (0-1.0) k/uL Eosinophils # 0.1 (0-0.7) k/uL Basophils # 0.1 (0-0.2) k/uL PT (9.0-12.0) sec INR (<1.2) APTT (22.0-30.0) sec Sodium 139 (137-145) mmol/L Potassium 4.1 (3.5-5.1) mmol/L Chloride 106 (98-107) mmol/L Carbon Dioxide 21 L (22-30) mmol/L Anion Gap 12 mmol/L BUN 12 (7-17) mg/dL Creatinine 0.61 (0.52-1.04) mg/dL Est GFR (CKD-EPI)AfAm >90 (>60 ml/min/1.73 sqM) Est GFR (CKD-EPI)NonAf >90 (>60 ml/min/1.73 sqM) Glucose 125 H (74-99) mg/dL Plasma Lactic Acid Kishor 1.6 (0.7-2.0) mmol/L Calcium 9.2 (8.4-10.2) mg/dL Total Bilirubin 1.0 (0.2-1.3) mg/dL AST 31 (14-36) U/L ALT 57 H (4-34) U/L Alkaline Phosphatase 88 (38-126) U/L Total Protein 7.2 (6.3-8.2) g/dL Albumin 4.4 (3.5-5.0) g/dL Lipase 69 (23-300) U/L 07/30/22 Range/Units 09:04 WBC (3.8-10.6) k/uL RBC (3.80-5.40) m/uL Hgb (11.4-16.0) gm/dL Hct (34.0-46.0) % MCV (80.0-100.0) fL MCH (25.0-35.0) pg MCHC (31.0-37.0) g/dL RDW (11.5-15.5) % Plt Count (150-450) k/uL MPV Neutrophils % % Lymphocytes % % Monocytes % % Eosinophils % % Basophils % % Neutrophils # (1.3-7.7) k/uL Lymphocytes # (1.0-4.8) k/uL Monocytes # (0-1.0) k/uL Eosinophils # (0-0.7) k/uL Basophils # (0-0.2) k/uL PT 9.7 (9.0-12.0) sec INR 0.9 (<1.2) APTT 22.6 (22.0-30.0) sec Sodium (137-145) mmol/L Potassium (3.5-5.1) mmol/L Chloride (98-107) mmol/L Carbon Dioxide (22-30) mmol/L Anion Gap mmol/L BUN (7-17) mg/dL Creatinine (0.52-1.04) mg/dL Est GFR (CKD-EPI)AfAm (>60 ml/min/1.73 sqM) Est GFR (CKD-EPI)NonAf (>60 ml/min/1.73 sqM) Glucose (74-99) mg/dL Plasma Lactic Acid Kishor (0.7-2.0) mmol/L Calcium (8.4-10.2) mg/dL Total Bilirubin (0.2-1.3) mg/dL AST (14-36) U/L ALT (4-34) U/L Alkaline Phosphatase (38-126) U/L Total Protein (6.3-8.2) g/dL Albumin (3.5-5.0) g/dL Lipase (23-300) U/L Disposition Clinical Impression: Post-op pain Disposition: HOME SELF-CARE Condition: Good Instructions (If sedation given, give patient instructions): Oxycodone/Acetaminophen (By mouth) Prescriptions: oxyCODONE-APAP 10-325MG [Percocet 10-325 mg] 1 tab PO Q4HR PRN 3 Days #18 tab PRN Reason: Pain Is patient prescribed a controlled substance at d/c from ED?: No Referrals: Kit Menon MD [STAFF PHYSICIAN] - 1-2 days Time of Disposition: 11:18
[2022-07-30 09:21] LABS: ALT 57 U/L (4-34); AST 31 U/L (14-36); African American GFR (CKD) >90 (>60 ml/min/1.73 sqM); Albumin 4.4 g/dL (3.5-5.0); Alkaline Phosphatase 88 U/L (38-126); Anion Gap 12 mmol/L; Blood Urea Nitrogen 12 mg/dL (7-17); Calcium 9.2 mg/dL (8.4-10.2); Carbon Dioxide 21 mmol/L (22-30); Chloride 106 mmol/L (98-107); Glucose 125 mg/dL (74-99); INR 0.9 (<1.2); Lipase 69 U/L (23-300); Non-African American GFR(CKD) >90 (>60 ml/min/1.73 sqM); Partial Thromboplastin Time 22.6 sec (22.0-30.0); Potassium 4.1 mmol/L (3.5-5.1); Prothrombin Time 9.7 sec (9.0-12.0); Sodium 139 mmol/L (137-145); Total Protein 7.2 g/dL (6.3-8.2)
[2022-07-30 09:57] VITALS: RESP 18
--- NOTE | 2022-07-30 10:42 | CT ---
EXAMINATION TYPE: CT abdomen pelvis w con CT DLP: 979.3 mGycm, Automated exposure control for dose reduction was used. DATE OF EXAM: 07/30/2022 9:34 AM COMPARISON: CT abdomen pelvis most recent from 06/29/2022 CLINICAL INDICATION:Female, 57 years old with history of post operative abdominal pain; Post operativ e abdominal pain, Hernia repair surgery 5 days ago TECHNIQUE: Axial CT of the abdomen and pelvis. Sagittal and coronal reformats were created on a [employer] workstation. Contrast used:100 ml mL of Isovue 370 with IV Contrast, Oral contrast used: without Oral Contrast FINDINGS: LOWER CHEST: Unremarkable ABDOMEN LIVER: Unremarkable GALLBLADDER AND BILE DUCTS: The gallbladder is surgically absent. PANCREAS: Unremarkable. SPLEEN: Unremarkable. ADRENAL GLANDS: Unremarkable. KIDNEYS AND URETERS: No evidence of hydronephrosis or renal calculus. The ureters are unremarkable. PELVIS BLADDER: Unremarkable REPRODUCTIVE: Unremarkable. ABDOMEN & PELVIS STOMACH AND BOWEL: No evidence of bowel obstruction. Scattered clonic diverticula present. Postsurgic al changes to the gastroesophageal junction. Small hiatal hernia. Postsurgical changes of the colon s uggestive with suture. Appendix is normal. PERITONEUM: No evidence of pneumoperitoneum or free fluid. VASCULATURE: No evidence of aortic aneurysm. Atherosclerosis of the arterial vasculature is mild. MUSCULOSKELETAL: No acute osseous abnormalities LYMPH NODES: No gross evidence for lymphadenopathy. SOFT TISSUE/ABDOMINAL WALL: Postsurgical changes to the anterior abdominal wall. Foci of gas is seen in the subcutaneous tissues along the anterior abdominal wall. No organizing fluid collections are p resent. IMPRESSION: 1. Postsurgical changes without evidence for acute postop complication. Expected subcutaneous gas at the surgical bed. No organizing fluid collection. 2. Small hiatal hernia present.
[2022-07-30 11:31] VITALS: BP 162/84; PULSE 92
== END 2022-07-30 11:30 | disposition home or self-care (01) ==
LOC: EC 08:16
DX: G89.18 Other acute postprocedural pain (principal); I10 Essential (primary) hypertension; F41.9 Anxiety disorder, unspecified; E78.5 Hyperlipidemia, unspecified; Z87.891 Personal history of nicotine dependence; Z91.040 Latex allergy status; Z88.8 Allergy status to other drugs, medicaments and biological substances; Z91.048 Other nonmedicinal substance allergy status; Z79.4 Long term (current) use of insulin; Z79.02 Long term (current) use of antithrombotics/antiplatelets
CPT/HCPCS: 36415; 80053; 83605; 83690; 85025; 85610; 85730; 74177; 99284; 96374; 96375; 96361 ×2; J2270; J2405; Q9967; 93005

== ENCOUNTER 2023-06-06 11:01 | Emergency (ER) | payer OTHER ==
[2023-06-06 11:18] VITALS: RESP 16
[2023-06-06 11:22] LABS: Glucose,Whole Blood 112 mg/dL (70-110)
[2023-06-06] MEDS ORDERED: SODIUM CHLORIDE 0.9% 1,000 ML IV STA (11:25)
[2023-06-06 11:51] LABS: Basophils # (A) 0.1 k/uL (0-0.2); Basophils % (A) 1 %; Eosinophils % (A) 0 %; HCT 46.9 % (34.0-46.0); HGB 15.8 gm/dL (11.4-16.0); Lymphocytes % (A) 28 %; MCH 30.6 pg (25.0-35.0); MCHC 33.7 g/dL (31.0-37.0); MCV 90.7 fL (80.0-100.0); Monocytes # (A) 0.5 k/uL (0-1.0); Monocytes % (A) 4 %; Neutrophils % (A) 65 %; Platelet Count 378 k/uL (150-450); RBC 5.17 m/uL (3.80-5.40); RDW 12.8 % (11.5-15.5); WBC 10.8 k/uL (3.8-10.6)
--- NOTE | 2023-06-06 12:05 | ED ---
General Adult HPI - General Chief complaint: Weakness Stated complaint: stroke Time Seen by Provider: 06/06/23 11:24 Source: patient Mode of arrival: wheelchair Limitations: no limitations - History of Present Illness Initial comments: Dictation was produced using [employer] dictation software. please excuse any grammatical, word or spelling errors. Chief Complaint: 57-year-old female presents with weakness and shaking since starting Cymbalta History of Present Illness: Patient 57-year-old female she has recently diagnosed history of anxiety. She started on Cymbalta by private doctor. He is also told that she may have beginnings of diabetes mellitus. States that on Sunday she started to depression medications multiple. She's been taking one every day since then. Since then she's been having some shaking and tremors. She states that she feels generally weak. Patient has a pain complaints. She still feels slightly anxious. Does not feel like the medications are working. The ROS documented in this emergency department record has been reviewed and confirmed by me. Those systems with pertinent positive or negative responses have been documented in the HPI. All other systems are other negative and/or noncontributory. - Related Data Home Medications Medication Instructions Recorded Confirmed Pregabalin [Lyrica] 75 mg PO TID 08/08/17 07/18/22 Verapamil [Isoptin] 80 mg PO TID 08/08/17 07/18/22 Docusate [Colace] 100 mg PO BID PRN 03/13/19 07/25/22 Inulin/Chromium Picolinate [Fiber 1 each PO DIRECTED 03/13/19 07/25/22 Gummies Chew] Atorvastatin [Lipitor] 20 mg PO HS 07/18/22 07/25/22 Fremanezumab-Vfrm [Ajovy 1 injection SQ QMONTHLY 07/18/22 07/25/22 Autoinjector] Ibuprofen [Motrin] 800 mg PO TID PRN 07/18/22 07/18/22 Ubrogepant [Ubrelvy] 100 mg PO DIRECTED PRN 07/18/22 07/25/22 Previous Rx's Medication Instructions Recorded Acetaminophen Tab [Tylenol] 650 mg PO Q6H #30 tab 07/25/22 Docusate [Colace] 100 mg PO BID #20 capsule 11/29/22 Ibuprofen [Motrin] 600 mg PO Q6HR PRN #40 tab 07/25/22 oxyCODONE HCL [OxyIR] 5 mg PO Q6H PRN 3 Days #10 tab 07/25/22 oxyCODONE-APAP 10-325MG [Percocet 1 tab PO Q4HR PRN 3 Days #18 tab 07/30/22 10-325 mg] Allergies Allergy/AdvReac Type Severity Reaction Status Date / Time latex Allergy Rash/Hives/ Verified 06/06/23 13:03 swelling rizatriptan [From Maxalt] Allergy Itching Verified 06/06/23 13:03 bandaid Allergy Rash/Hives/ Uncoded 06/06/23 13:03 swelling Review of Systems ROS Statement: Those systems with pertinent positive or pertinent negative responses have been documented in the HPI. ROS Other: All systems not noted in ROS Statement are negative. Past Medical History Past Medical History: CVA/TIA, Fibromyalgia, GERD/Reflux, Hyperlipidemia, Hypertension, Osteoarthritis (OA) Additional Past Medical History / Comment(s): hx Kidney stones, migraines, ruptured discs with difficulty laying in bed long periods will need to roll to side to get out of bed, hx diverticulitis, 2019 TIA-no residual effects, hx hiatal hernia, "rt eye prism" History of Any Multi-Drug Resistant Organisms: None Reported Past Surgical History: Bowel Resection, Breast Surgery, Cholecystectomy, Orthopedic Surgery Additional Past Surgical History / Comment(s): D&C x2, Rt foot surgery, benign t umor L breast, tendon repair left ring finger, EGD,colonoscopy, hiatal hernia repair, Past Anesthesia/Blood Transfusion Reactions: Motion Sickness, Postoperative Nausea & Vomiting (PONV) Past Psychological History: Anxiety, Panic Disorder Smoking Status: Former smoker Past Alcohol Use History: None Reported Past Drug Use History: Marijuana - Past Family History Mother Family Medical History: Cancer Additional Family Medical History / Comment(s): Breast- age 33 Father Family Medical History: Deep Vein Thrombosis (DVT) General Exam - General Exam Comments Initial Comments: PHYSICAL EXAM: General Impression: Alert and oriented x3, not in acute distress HEENT: Normocephalic atraumatic, extra-ocular movements intact, pupils equal and reactive to light bilaterally, mucous membranes moist. Cardiovascular: Heart regular rate and rhythm Chest: Able to complete full sentences, no retractions, no tachypnea Abdomen: abdomen soft, non-tender, non-distended, no organomegaly Musculoskeletal: Pulses present and equal in all extremities, no peripheral edema Motor: no focal deficits noted Neurological: CN II-XII grossly intact, no focal motor or sensory deficits noted Skin: Intact with no visualized rashes Psych: Normal affect and mood Limitations: no limitations Course Vital Signs 06/06/23 06/06/23 06/06/23 11:04 11:15 11:30 Temperature 97 F L Pulse Rate 100 76 80 Respiratory 16 19 17 Rate Blood Pressure 133/81 143/91 O2 Sat by Pulse 97 99 99 Oximetry 06/06/23 06/06/23 12:00 12:30 Temperature Pulse Rate 66 69 Respiratory 13 16 Rate Blood Pressure 148/86 155/94 O2 Sat by Pulse 98 98 Oximetry EKG Findings - EKG Comments: EKG Findings:: My EKG interpretation: Ventricular rate 78, sinus rhythm. Interval 181, QRS 90, QTC 422. No SD prolongation, no QTC prolongation, no ST or T-wave changes noted. Overall, this EKG is unremarkable Medical Decision Making - Medical Decision Making Was pt. sent in by a medical professional or institution (, PA, FINANCIAL PLANNING ADVISER, urgent care, hospital, or skilled nursing...) When possible be specific @ -No Did you speak to anyone other than the patient for history (EMS, parent, family, police, friend...)? What history was obtained from this source @ -No Did you review nursing and triage notes (agree or disagree)? Why? @ -I reviewed and agree with nursing and triage notes Were old charts reviewed (outside hosp., previous admission, EMS record, old EKG, old radiological studies, urgent care reports/EKG's, skilled nursing records)? Report findings @ -No old charts were reviewed Differential Diagnosis (chest pain, altered mental status, abdominal pain women, abdominal pain men, vaginal bleeding, musculoskeletal, weakness, fever, dyspnea, syncope, headache, dizziness, GI bleed, back pain, seizure, CVA, palpatations, mental health)? @ -Differential Weakness: Hypoglycemia, shock, sepsis, hyponatremia, anemia, infection, [place], ETOH, adverse medicine reaction, overdose, stroke, this is not meant to be an all-inclusive list. EKG interpreted by me (3pts min.). @ -see above X-rays interpreted by me (1pt min.). @ -None done CT interpreted by me (1pt min.). @ -None done U/S interpreted by me (1pt. min.). @ -None done What testing was considered but not performed or refused? (CT, X-rays, U/S, labs)? Why? @ -None What meds were considered but not given or refused? Why? @ -None Did you discuss the management of the patient with other professionals (professionals i.e. , PA, FINANCIAL PLANNING ADVISER, lab, RT, psych nurse, geriatric social worker, military education coordinator, teacher, military source operations officer, case making machine operator)? Give summary @ -No Was smoking cessation discussed for >3mins.? @ -No Was critical care preformed (if so, how long)? @ -No Were there social determinants of health that impacted care today? How? (Homelessness, low income, unemployed, alcoholism, drug addiction, transp ortation, low edu. Level, literacy, decrease access to med. care, alf, rehab)? @ -No Was there de-escalation of care discussed even if they declined (Discuss DNR or withdrawal of care, Hospice)? DNR status @ -No What co-morbidities impacted this encounter? (DM, HTN, Smoking, COPD, CAD, Cancer, CVA, ARF, Chemo, Hep., AIDS, mental health diagnosis, sleep apnea, morbid obesity)? @ -None Was patient admitted / discharged? Hospital course, mention meds given and route, prescriptions, significant lab abnormalities, going to OR and other pertinent info. @ -57 yo female presents emergency department for weakness anxiety and tremors. Vital signs are stable. Patient well-appearing at the bedside. Laboratory evaluation obtained. CBC, metabolic panel within acceptable limits. Thyroid levels are normal. Patient observed in emergency department for approximately 2 hours. Reevaluated at bedside about 3 PM she is well-appearing at the bedside. Patient has no high-risk features. She is well-appearing advised follow-up with primary care doctor. Suspect that patient's symptoms are secondary to adverse affect from recently initiated medications. Undiagnosed new problem with uncertain prognosis? @ -No Drug Therapy requiring intensive monitoring for toxicity (Heparin, Nitro, Insulin, Cardizem)? @ -No Were any procedures done? @ -No Diagnosis/symptom? Acute, or Chronic, or Acute on Chronic? Uncomplicated (without systemic symptoms) or Complicated (systemic symptoms)? @ -Weakness, tremors Side effects of treatment? @ -No Exacerbation, Progression, or Severe Exacerbation? @ -No Poses a threat to life or bodily function? How? (Chest pain, [place], [place], pneumonia, PE, COPD, DKA, ARF, appy, cholecystitis, CVA, Diverticulitis, Homicidal, Suicidal, threat to staff... and all critical care pts) @ -No - Lab Data Result diagrams: 06/06/23 11:39 06/06/23 11:39 Lab Results 06/06/23 06/06/23 06/06/23 Range/Units 11:20 11:39 11:39 WBC 10.8 H (3.8-10.6) k/uL RBC 5.17 (3.80-5.40) m/uL Hgb 15.8 (11.4-16.0) gm/dL Hct 46.9 H (34.0-46.0) % MCV 90.7 (80.0-100.0) fL MCH 30.6 (25.0-35.0) pg MCHC 33.7 (31.0-37.0) g/dL RDW 12.8 (11.5-15.5) % Plt Count 378 (150-450) k/uL MPV 7.0 Neutrophils % 65 % Lymphocytes % 28 % Monocytes % 4 % Eosinophils % 0 % Basophils % 1 % Neutrophils # 7.0 (1.3-7.7) k/uL Lymphocytes # 3.0 (1.0-4.8) k/uL Monocytes # 0.5 (0-1.0) k/uL Eosinophils # 0.0 (0-0.7) k/uL Basophils # 0.1 (0-0.2) k/uL Sodium 140 (137-145) mmol/L Potassium 4.1 (3.5-5.1) mmol/L Chloride 105 (98-107) mmol/L Carbon Dioxide 23 (22-30) mmol/L Anion Gap 12 mmol/L BUN 10 (7-17) mg/dL Creatinine 0.67 (0.52-1.04) mg/dL Est GFR (CKD-EPI)AfAm >90 (>60 ml/min/1.73 sqM) Est GFR (CKD-EPI)NonAf >90 (>60 ml/min/1.73 sqM) Glucose 113 H (74-99) mg/dL POC Glucose (mg/dL) 112 H (70-110) mg/dL POC Glu Environmental Property Assessor ID Alexsandra Schmidt Calcium 9.9 (8.4-10.2) mg/dL Magnesium 2.4 H (1.6-2.3) mg/dL TSH 0.863 (0.465-4.680) mIU/L Disposition Clinical Impression: Occasional tremors Disposition: HOME SELF-CARE Condition: Good Is patient prescribed a controlled substance at d/c from ED?: No Referrals: None,Stated [REFERRING] - 1-2 days Time of Disposition: 13:03
[2023-06-06 12:06] LABS: African American GFR (CKD) >90 (>60 ml/min/1.73 sqM); Anion Gap 12 mmol/L; Blood Urea Nitrogen 10 mg/dL (7-17); Calcium 9.9 mg/dL (8.4-10.2); Carbon Dioxide 23 mmol/L (22-30); Chloride 105 mmol/L (98-107); Glucose 113 mg/dL (74-99); Magnesium 2.4 mg/dL (1.6-2.3); Non-African American GFR(CKD) >90 (>60 ml/min/1.73 sqM); Potassium 4.1 mmol/L (3.5-5.1); Sodium 140 mmol/L (137-145)
[2023-06-06 13:24] VITALS: BP 145/82; PULSE 70; TEMP 98.9
== END 2023-06-06 13:20 | disposition home or self-care (01) ==
LOC: EC 11:01
DX: R25.1 Tremor, unspecified (principal); E78.5 Hyperlipidemia, unspecified; I10 Essential (primary) hypertension; M19.90 Unspecified osteoarthritis, unspecified site; F12.90 Cannabis use, unspecified, uncomplicated; Z86.73 Personal history of transient ischemic attack (TIA), and cerebral infarction without residual deficits; Z79.1 Long term (current) use of non-steroidal anti-inflammatories (NSAID); Z79.899 Other long term (current) drug therapy; Z86.59 Personal history of other mental and behavioral disorders; Z87.891 Personal history of nicotine dependence; Z91.040 Latex allergy status; Z90.49 Acquired absence of other specified parts of digestive tract; Z88.8 Allergy status to other drugs, medicaments and biological substances
CPT/HCPCS: 36415; 80048; 83735; 84443; 85025; 96360; 99285